=== PATIENT | male | born 1950 | race Caucasian/White ===

== ENCOUNTER → 2016-12-14 | Outpatient (CLI) | payer OTHER ==
[~2016-12-14] MED LIST: ABACTAB11 PO; ASPEC325 PO; DOLU1TAB PO; FAMO20TA11 PO; FLX10 PO; KETO10TA PO; METH5TAB4 PO; MIRT30TA2 PO; MISCCAP80 PO; MULT-506 PO; NOTE:; OXYC-57 PO; TIMO0.5S2 OPB; TMPOPS15 OP; TRVHP PO; ZOLP10TA6 PO
[2016-12-14 12:03] LABS: BASO % 0.5 %; BASO ABS # 0.03 K/uL (0-0.2); COMPLETE YES; EOS % 6.7 %; HEMATOCRIT 42.5 % (42-52); IG% 0.2 %; LYMPH ABS # 2.39 K/uL (1.2-3.4); MEAN CELL VOLUME 96.6 fL (80-100); MEAN CORPUSCULAR HEMOGLOBIN 33.2 pg (25-34); MEAN CORPUSCULAR HGB CONC 34.4 g/dl (32-36); MEAN PLATELET VOLUME 10.6 fL (7.4-10.4); MONO % 8.5 %; NEUT % 44.1 %; PLATELET COUNT 279 K/uL (130-400); WHITE BLOOD COUNT 5.98 K/uL (4.8-10.8)
[2016-12-14 13:25] LABS: ALT/SGPT 34 U/L (12-78); AST/SGOT 24 U/L (15-37); BLOOD UREA NITROGEN 20 mg/dl (7-18); BUN/CREATININE RATIO 14.3 (10-20); CALCIUM 8.4 mg/dl (8.5-10.1); CARBON DIOXIDE 26 mmol/L (21-32); CHLORIDE 108 mmol/L (98-107); CHOLESTEROL 182 mg/dl (0-200); GLUCOSE 97 mg/dl (70-99); POTASSIUM 4.2 mmol/L (3.5-5.1); SODIUM 141 mmol/L (136-145)
[2016-12-14 13:27] LABS: ALKALINE PHOSPHATASE 74 U/L (45-117); CHOLESTEROL/HDL RATIO 4.9; HDL CHOLESTEROL 37 mg/dl; LDL CHOLESTEROL CALCULATED 99 mg/dl; TRIGLYCERIDES 232 mg/dl (0-150); VERY LOW DENSITY LIPOPROT CALC 46 mg/dl
[2016-12-17 22:29] LABS: LSP % CELLS ANALYZED CD4 47 % (30-61); LSP ABSOLUTE CT CD4 1106 cells/uL (490-1740); LSP LYMPHOCYTES ABSOLUTE 2329 cells/uL (850-3900)
== END | disposition home or self-care (01) ==
LOC: C.LAB1850 10:56
PROVIDERS: ATTEND Internal Medicine Infectious Disease
DX: Z00.00 Encounter for general adult medical examination without abnormal findings (principal); B34.9 Viral infection, unspecified; B20 Human immunodeficiency virus [HIV] disease; Z13.220 Encounter for screening for lipoid disorders

== ENCOUNTER → 2016-12-28 | Day surgery (SDC) | payer OTHER ==
[2016-12-16 08:52] VITALS: Ht 180.3 cm; Wt 93.2 kg
[~2016-12-28] VITALS: Ht 180.3 cm; Wt 93.2 kg
[~2016-12-28] MED LIST changes: -ABACTAB11 PO; -FLX10 PO; +LIDOCAINE HCL 2% 2 ML VIAL (20MG/ML) ONE; -METH5TAB4 PO; +MIDAZOLAM HCL 1 MG/ML 2ML VIAL ONE; -NOTE:; +PROPOFOL IV EMULSION 10 MG/ML 20 ML VIAL IV ONE; -TMPOPS15 OP
--- NOTE | 2016-12-28 12:28 | Endo History and Physical ---
History & Physical Date of Service: Dec 28, 2016. Chief Complaint: screening Referring Physician: Dr. English History of Present Illness 66 yo CM who presents for screening colonoscopy. Past Medical History Glaucoma, Reflux Past Surgical History Hx Cardiac Surgery: No Hx Internal Defibrillator: No Hx Pacemaker: No Hx Abdominal Surgery: Yes (INGUINAL HERNIA X 3, BLAIR) Hx of Implantable Prosthesis: No Hx Post-Op Nausea and Vomiting: No Hx Cancer Surgery: No Hx Thoracic Surgery: No Hx Orthopedic: No Hx Urinary Tract Surgery: No Family History None Social History Smoking Status: Former Smoker Hx Substance Use: No Hx Alcohol Use: Yes (RARELY) Allergies Coded Allergies: Penicillins (Verified Allergy, Unknown, A CHILD, INTERNAL BLEEDING, 08/05) TOLERATES AMOXICILLIN Current Medications Reported Home Medications Medications Dose Route/Sig Max Daily Dose Days Date Category Dose Instructions Probiotic (Probiotic Product) 1 Cap Cap 1 Cap PO QAM 12/16/16 Reported Multivitamin (Multivitamins) Tab 1 Tab PO DAILY 12/16/16 Reported WHEN REMEMBERS Timoptic-Xe 0.5% Oph (Timolol Maleate (Ophth)) 0.5 % Danae 1 Drops OPB DAILY 12/16/16 Reported Zolpidem Tartrate 10 Mg Tab 1 Tab PO HS 30 12/16/16 Reported Truvada 200/300MG (Emtricitabine/Tenofovir) Tab 1 Tab PO HS 12/16/16 Reported Tivicay (Dolutegravir Sodium) 50 Mg Tab 1 Tab PO HS 12/16/16 Reported Remeron Soltab (Mirtazapine) 30 Mg Soltab 30 Mg PO HS 12/16/16 Reported Pepcid (Famotidine) 20 Mg Tab 20 Mg PO HS 12/16/16 Reported Vital Signs Weight (Kilograms): 93.18 Height (Feet): 5 Height (Inches): 11 Date Time Temp Pulse Resp B/P Pulse Ox O2 Delivery O2 Flow Rate FiO2 12/28/16 11:01 36.5 91 20 131/76 96 Room Air Physical Exam General Appearance: WD/WN, no apparent distress Respiratory/Chest: Auscultation: breath sounds normal Cardiovascular: Heart Auscultation: RRR Abdomen: Bowel Sounds: normal Inspection & Palpation: soft, non-distended, no tenderness, guarding & rebound Assessment and Plan Assessment: 66 yo CM who presents for screening colonoscopy. Plan: Proceed with colonoscopy.
--- NOTE | 2016-12-28 13:14 | GI REPORT ---
Procedure Date: 12/28/2016 12:30 PM Procedure: Colonoscopy Indications: Screening for colorectal malignant neoplasm Medicines: Monitored Anesthesia Care Complications: No immediate complications. Estimated Blood Loss: Estimated blood loss: none. Procedure: Pre-Anesthesia Assessment: - Prior to the procedure, a History and Physical was performed, and patient medications and allergies were reviewed. The patient's tolerance of previous anesthesia was also reviewed. The risks and benefits of the procedure and the sedation options and risks were discussed with the patient. All questions were answered, and informed consent was obtained. Prior Anticoagulants: The patient has taken no previous anticoagulant or antiplatelet agents. ASA Grade Assessment: II - A patient with mild systemic disease. After reviewing the risks and benefits, the patient was deemed in satisfactory condition to undergo the procedure. After I obtained informed consent, the scope was passed under direct vision. Throughout the procedure, the patient's blood pressure, pulse, and oxygen saturations were monitored continuously. The scope was introduced through the anus and advanced to the cecum, identified by appendiceal orifice and ileocecal valve. The colonoscopy was performed without difficulty. The patient tolerated the procedure well. The quality of the bowel preparation was good. The terminal ileum, ileocecal valve, appendiceal orifice, and rectum were photographed. Findings: Three sessile polyps were found in the transverse colon. The polyps were 5 to 8 mm in size. These polyps were removed with a hot snare. Resection and retrieval were complete. To prevent bleeding after the polypectomy, one hemostatic clip was successfully placed (MR conditional). There was no bleeding at the end of the procedure. Multiple small-mouthed diverticula were found in the sigmoid colon. Non-bleeding internal hemorrhoids were found during retroflexion. The hemorrhoids were small. Impression: - Three 5 to 8 mm polyps in the transverse colon, removed with a hot snare. Resected and retrieved. Clip (MR conditional) was placed. - Diverticulosis in the sigmoid colon. - Non-bleeding internal hemorrhoids. Recommendation: - Resume previous diet. - Continue present medications. - Repeat colonoscopy for surveillance based on pathology results. - Return to primary care physician as previously scheduled. Vidal Benson DO 12/28/2016 1:13:32 PM This report has been signed electronically. Note Initiated On: 12/28/2016 12:30 PM I attest to the content of the Intraoperative Record and orders documented therein, exceptions below
--- NOTE | 2016-12-28 13:15 | Discharge Instructions ---
Endoscopy Patient Instructions Date / Procedure(s) Performed Dec 28, 2016. Colonoscopy Allergy Information Coded Allergies: Penicillins (Verified Allergy, Unknown, A CHILD, INTERNAL BLEEDING, 08/05) TOLERATES AMOXICILLIN Discharge Date / Findings Dec 28, 2016. Colon polyps Diverticulosis Internal hemorrhoids Medication Instructions Stopped Medication(s): All meds stopped 12/27/2016. OK to resume all medications today as prescribed. Reported Home Medications Medications Dose Route/Sig Max Daily Dose Days Date Category Dose Instructions Probiotic (Probiotic Product) 1 Cap Cap 1 Cap PO QAM 12/16/16 Reported Multivitamin (Multivitamins) Tab 1 Tab PO DAILY 12/16/16 Reported WHEN REMEMBERS Timoptic-Xe 0.5% Oph (Timolol Maleate (Ophth)) 0.5 % Danae 1 Drops OPB DAILY 12/16/16 Reported Zolpidem Tartrate 10 Mg Tab 1 Tab PO HS 30 12/16/16 Reported Truvada 200/300MG (Emtricitabine/Tenofovir) Tab 1 Tab PO HS 12/16/16 Reported Tivicay (Dolutegravir Sodium) 50 Mg Tab 1 Tab PO HS 12/16/16 Reported Remeron Soltab (Mirtazapine) 30 Mg Soltab 30 Mg PO HS 12/16/16 Reported Pepcid (Famotidine) 20 Mg Tab 20 Mg PO HS 12/16/16 Reported Provider Instructions Activity Restrictions - No exercising or heavy lifting for 24 hours. - Do not drink alcohol the day of the procedure. - Do not drive a car or operate machinery until the day after the procedure. - Do not make any important decisions or sign important papers in 24 hours after the procedure. Following Day: - Return to full activity which may include returning to work/school. Diet Start your diet with liquids and light foods (jello, soup, juice, toast). Then eat your usual diet if not nauseated. Treatment For Common After Affects For mild abdominal pain, bloating, or excessive gas: - Rest - Eat lightly - Lie on right side Follow-Up Information Follow-up with Dr. English as scheduled Anesthesia Information What You Should Know You have had a procedure that required some medicine to reduce anxiety and discomfort. This treatment is called moderate sedation. After receiving the treatment, you may be sleepy, but you will be able to breathe on your own. The effects of the treatment may last for several hours. Follow these instructions along with Activity/Diet recommendations noted above: * Do NOT do anything where dizziness or clumsiness would be dangerous. * Rest quietly at home today, then you can be up and about tomorrow. * Have a responsible person stay with you the rest of today. * You may have had an I.V. today. If so, you may take the dressing off later today. Recommendations Call your doctor if: * Trouble breathing * Continuous vomiting for more than 24 hours * Temperature above 101 degrees * Severe abdominal pain or bloating * Pain not relieved by pain medicine ordered * There is increased drainage or redness from any incision * A large amount of rectal bleeding greater than 2-3 tablespoons. (If you had a polyp/s removed or have hemorrhoids, a small amount of blood - from the rectum is to be expected.) * You have any unanswered questions or concerns. IN THE EVENT OF A SERIOUS EMERGENCY, GO TO THE NEAREST EMERGENCY ROOM Your discharge instructions were prepared by provider Vidal Benson. Patient Instructions Signature Page Nikhil Moreno Patient (or Guardian) Signature/Date: I have read and understand the instructions given to me by my caregivers. Caregiver/RN/Doctor Signature/Date: The above-named patient and/or guardian has received patient instructions on this date. + Original Patient Signature Page (only) stays with chart. Please make copy for patient.
--- NOTE | 2016-12-28 13:20 | Anesthesiology Progress Note ---
Anesthesia Post Op Note Date & Time Dec 28, 2016 at 13:19 Vital Signs Pain Intensity: 0 Vital Signs Past 12 Hours Date Time Temp Pulse Resp B/P Pulse Ox O2 Delivery O2 Flow Rate FiO2 12/28/16 13:15 85 20 111/81 97 Room Air 12/28/16 13:00 85 20 122/76 96 Room Air 12/28/16 11:01 36.5 91 20 131/76 96 Room Air Notes Mental Status: alert / awake / arousable, participated in evaluation Pt Amnestic to Procedure: Yes Nausea / Vomiting: adequately controlled Pain: adequately controlled Airway Patency, RR, SpO2: stable & adequate BP & HR: stable & adequate Hydration State: stable & adequate Anesthetic Complications: no major complications apparent
[2016-12-28 13:30] VITALS: BP 139/108; PULSE 81; O2SAT 98
== END | disposition home or self-care (01) ==
LOC: C.GI 10:10
PROVIDERS: ATTEND Internal Medicine
DX: Z12.11 Encounter for screening for malignant neoplasm of colon (principal); D12.3 Benign neoplasm of transverse colon; K57.30 Diverticulosis of large intestine without perforation or abscess without bleeding; K64.8 Other hemorrhoids; K21.9 Gastro-esophageal reflux disease without esophagitis; Z98.890 Other specified postprocedural states; Z87.891 Personal history of nicotine dependence; Z88.0 Allergy status to penicillin

== ENCOUNTER → 2017-02-01 | Outpatient (CLI) | payer OTHER ==
[~2017-02-01] MED LIST changes: -LIDOCAINE HCL 2% 2 ML VIAL (20MG/ML) ONE; -MIDAZOLAM HCL 1 MG/ML 2ML VIAL ONE; -PROPOFOL IV EMULSION 10 MG/ML 20 ML VIAL IV ONE
[2017-02-01 13:08] LABS: BENZODIAZEPINE, URINE NEG (NEG); COCAINE,URINE NEG (NEG); PHENCYCLIDINE, URINE NEG (NEG)
== END | disposition home or self-care (01) ==
LOC: C.LAB1850 10:15
PROVIDERS: ATTEND Family Medicine
DX: F90.0 Attention-deficit hyperactivity disorder, predominantly inattentive type (principal); Z79.899 Other long term (current) drug therapy

== ENCOUNTER → 2017-02-28 | Outpatient (CLI) | payer OTHER ==
[2017-02-28 14:56] LABS: BASO % 0.5 %; BASO ABS # 0.03 K/uL (0-0.2); COMPLETE YES; EOS % 5.5 %; HEMATOCRIT 41.3 % (42-52); IG% 0.2 %; LYMPH ABS # 2.05 K/uL (1.2-3.4); MEAN CELL VOLUME 96.7 fL (80-100); MEAN CORPUSCULAR HEMOGLOBIN 31.6 pg (25-34); MEAN CORPUSCULAR HGB CONC 32.7 g/dl (32-36); MEAN PLATELET VOLUME 10.3 fL (7.4-10.4); MONO % 8.4 %; NEUT % 50.4 %; PLATELET COUNT 311 K/uL (130-400); RED BLOOD COUNT 4.27 M/uL (4.7-6.1); WHITE BLOOD COUNT 5.85 K/uL (4.8-10.8)
[2017-02-28 15:29] LABS: POTASSIUM 4.1 mmol/L (3.5-5.1)
== END | disposition home or self-care (01) ==
LOC: C.CPL 13:52
PROVIDERS: ATTEND Orthopaedic Surgery Sports Medicine
DX: Z01.810 Encounter for preprocedural cardiovascular examination (principal)

== ENCOUNTER → 2017-03-02 | Day surgery (SDC) | payer OTHER ==
[2017-02-28 15:14] VITALS: Ht 180.3 cm; Wt 90.5 kg
[~2017-03-02] VITALS: Ht 180.3 cm; Wt 90.5 kg
[~2017-03-02] MED LIST changes: +ATROPINE SULFATE 0.1 MG/ML 5ML SYR IV PRN; +BUPIVACAINE/EPINEPHRINE 0.5% MPF 1:200,000 30 ML VIAL ONE; +CEFAZOLIN SOD 1 GM VIAL ONE; +CEFAZOLIN SOD 1000MG/55 ML D5W IV ONE; +DEXAMETHASONE SOD INJ 4 MG/ML VIAL ONE; +ESMOLOL HCL 10 MG/ML 10 ML VIAL ONE; +FENTANYL CITRATE INJ 50 MCG/1 ML 2 ML VIAL IV PRN; +FENTANYL CITRATE INJ 50 MCG/1 ML 2 ML VIAL ONE; +KETOROLAC TROMETHAMINE 30 MG/ML VIAL IV. PRN; +LABETALOL HCL IV 5 MG/ML 20ML IV PRN; +LIDOCAINE HCL 2% 2 ML VIAL (20MG/ML) ONE; +MIDAZOLAM HCL 1 MG/ML 2ML VIAL ONE; +ONDANSETRON INJ 2 MG/ML 2 ML VIAL IV PRN; +ONDANSETRON INJ 2 MG/ML 2 ML VIAL ONE; +OXYCODONE/ACETAMINOPHEN 5-325 TAB PO PRN; +PROPOFOL IV EMULSION 10 MG/ML 20 ML VIAL IV ONE; +ROPIVACAINE 0.5% 5 MG/ML 30 ML VIAL ONE; +SODIUM CHLORIDE 0.9% 1000ML 1,000 ML IV SCH
--- NOTE | 2017-03-02 07:53 | History & Physical Bridge - SC ---
H&P Re-Evaluation Bridge Note: I have examined the patient, reviewed the History & Physical and in the interval since the performance of the History & Physical I have noted the following changes of clinical significance: No changes noted
[2017-03-02] MEDS: LACTATED RINGER'S 1000ML 1,000 ML IV SCH ×2 (08:08→12:08)
[2017-03-02] MEDS: CEFAZOLIN 2000 MG/60 ML D5W IV SCH ×2 (09:07→09:30)
--- NOTE | 2017-03-02 11:33 | [facility] Post Operative Brief Note ---
Immediate Operative Summary Operative Date Mar 02, 2017. Pre-Operative Diagnosis Left Bimalleolar Ankle Fracture Post-Operative Diagnosis same as preop Procedure(s) Performed ORIF Left Bimalleolar Ankle Fracture Surgeon Dr. Huddleston Customer Professional Surgeon(s) Neville Zavala PA-C Estimated Blood Loss 30ML Findings Comminuted Bimalleolar ankle fracture Specimens none, per surgeon Anesthesia General Complication(s) None Disposition Recovery Room / PACU
--- NOTE | 2017-03-02 11:37 | Discharge Instructions-SurgCtr ---
Discharge Instructions Date of Service Mar 02, 2017. Visit Reason for Visit: Fracture Of Tibia And Fibula Discharge Discharge Diagnosis / Problem: left distal tibia and fibula fx Discharge Goals Goal(s): Improve function, Therapeutic intervention Activity Recommendations Activity Limitations: per Instructions/Follow-up section Weightbearing Status: Left non-weightbearing Anesthesia . Post Anesthesia Instructions: If you have had General Anesthesia or IV Sedation: * Do not drive today. * Resume driving when surgeon permits. * Do not make important decisions or sign legal documents today. * Call surgeon for: 1. Temperature elevations greater than 101 degrees F. 2. Uncontrollable pain. 3. Excessive bleeding. 4. Persistent nausea and vomiting. 5. Medication intolerance (nausea, vomiting or rash). * For nausea and vomiting use only clear liquids such as: tea, soda, bouillon until nausea subsides, then gradually increase diet as tolerated. * If you have any concerns or questions, call your surgeon's office. If physician is unavailable and it is an emergency, call 911 or go to the nearest emergency room. . Instructions / Follow-Up Instructions / Follow-Up MEDICATIONS: * Resume previous medications unless instructed otherwise by your surgeon. * Always take pain medication on a full stomach or with food to avoid upset stomach. * Do not drink alcohol or drive while taking narcotics. * Ibuprofen or Tylenol may be taken if narcotic not needed. No ibuprofen while taking toradol SPECIAL CARE INSTRUCTIONS: __ None _x_ Keep extremity elevated and iced x 48 hours; apply ice 20-30 minutes 8-10 times/day. May remove at night. _x_ Crutches __ May discard when able __ Brace/Post-op shoe __ 24 hrs/day __ Remove at night _x_ Dressing x__ Maintain until seen in office, may shower with plastic over site __ Remove dressings in 24-48 hours and then may shower __ Cover incisions with band-aids after showering __ Do not remove steri-strips Call physician if chills or temperature rises above 102 degrees or pain unrelieved by prescribed pain medications. Office [phone] follow up in 2 weeks Diet Recommendations Home Diet: resume previous diet Procedures Procedures Performed: ORIF Left Bimalleolar Ankle Fracture Pending Studies Studies pending at discharge: no Medical Emergencies . Who to Call and When: Medical Emergencies: If at any time you feel your situation is an emergency, please call 911 immediately. . Non-Emergent Contact Non-Emergency issues call your: Surgeon . . "Provider Documentation" section prepared by Luis Zavala. .
--- NOTE | 2017-03-02 13:03 | OPERATIVE REPORT ---
DATE OF OPERATION: 03/02/2017 PREOPERATIVE DIAGNOSIS: Left comminuted bimalleolar ankle fracture dislocation. POSTOPERATIVE DIAGNOSIS: Same. PROCEDURE PERFORMED: Open reduction and internal fixation of left comminuted bimalleolar ankle fracture. SURGEON: Chandan Huddleston M.D. DEMAND INSPECTOR: Luis Zavala PA-C. COMPLICATIONS: None. ESTIMATED BLOOD LOSS: 30 mL. TOURNIQUET TIME: 62 minutes at 300 mmHg. ANESTHESIA: General. SPECIMENS: None. OPERATIVE INDICATIONS: The patient is a 66-year-old gentleman who sustained an injury over the weekend. He was out of town when he stepped in some type of crack and sustained a severe injury to his ankle. He was seen locally in [place] and underwent a closed reduction, was splinted and referred to our clinic for definitive treatment. The patient had moderate swelling and a pretty large medial fracture blister. His leg was immobilized and elevated to allow swelling to resolve and the patient is now indicated for surgical fixation. OPERATIVE FINDINGS: Operative findings revealed a comminuted fibula fracture. The medial malleolus fracture was a large fragment. The swelling had decreased some but still markedly swollen. Fracture blister had ruptured. OPERATIVE IMPLANTS: Medial side implants consisted of Synthes 4.0 partially threaded long threaded screws x2 with washers. LATERAL SIDE IMPLANTS: Lateral side implants consisted of: 1. A Synthes 12-hole 1/3 semitubular stainless steel small fragment locking plate. 2. A 3.5 fully threaded cortical screws x6. 3. A 4.0 fully threaded cancellous screws x2. 4. A 3.5 fully threaded locking screws x2. OPERATIVE PROCEDURE: The patient taken to the operating room, identified and placed on the operating table in supine position. All contact areas were appropriately padded. IV antibiotics provided by anesthesia team. A general anesthetic was implemented. A left thigh tourniquet was then placed. The splint was then removed from the left foot and ankle. I then scrubbed the foot with Hibiclens. We then prepped it with ChloraPrep and draped the lower extremity in a typical sterile fashion. The left leg was elevated but not exsanguinated. The tourniquet was placed at 300 mmHg. Attention was first drawn to the medial side. A curvilinear incision was made over the medial malleolus. We did make this anterior to the fracture blister and avoided entering through the black fracture blister at all. Sharp dissection was carried out through the subcutaneous tissue down to the bone. The fracture site was easily visualized. There was quite a bit of periosteum in the fracture itself. We distracted fragment pieces and removed all soft tissues from the interfaces and between the fracture edges. I then irrigated the wound along with the ankle joint extensively. I then reduced the medial malleolus fracture and held it with a reduction clamp. I placed 2 K-wires across the fracture and verified this fluoroscopically. I then placed two 4.0 partially threaded, long threaded cannulated cancellous screws with washers across the fracture site through both of these K-wires. This provided excellent compression. The K-wires were removed. X-rays were obtained and the hardware was appropriately placed. The ankle stability was markedly restored. Attention was then drawn laterally. A direct lateral approach to the fibula was then performed through a longitudinal incision. Sharp dissection was carried through the subcutaneous tissue down to the level of fascia. I did incise the periosteum and stripped this from the fracture site. The fracture was quite comminuted. I pieced it together with some K-wires and then used a Synthes 12-hole 1/3 semitubular locking plate and fixed it proximally with a single fully threaded cortical screw. I then fixed it distally with two 4.0 fully threaded cancellous screws and then even further distally with two 3.5 locking screws. I placed these screws distally in order to sink the heads into the plate and make the hardware less prominent. I then proceeded to fix the plate to the bone proximally with additional 3.5 fully threaded cortical screws. One of these screws was placed across the comminuted segment to lag it together and enhanced stability. We did not take the entire fracture down, it was fairly comminuted. Some final x-rays were obtained. I did stress the ankle and there were no signs of needing syndesmosis screw or syndesmosis instability. Attention was then drawn toward closing. The wound was irrigated with copious amounts of normal saline. I injected locally with 30 mL of 0.5% Marcaine with epinephrine. The tourniquet was then let down for final tourniquet time 62 minutes. Hemostasis was assured with use of electrocautery. The deep tissue laterally was repaired with 2-0 Vicryl suture in a buried interrupted fashion. The subcutaneous tissues of both wounds were then closed with 3-0 Dexon suture in a buried interrupted fashion. Skin was closed with 3-0 nylon suture, both medially and laterally. A sterile dressing with Xeroform, 4 x 4, sterile cast padding and a well-padded posterior and stirrup splint were applied. The patient then brought out of general anesthesia and transferred to the recovery room in stable condition. The patient tolerated the procedure well with no complications. All needle and sponge counts were correct at the end of the operation. I attest to the content of the Intraoperative Record and any orders documented therein. Any exceptions are noted below. MTDD
[2017-03-02 13:34] VITALS: TEMP 36.7
--- NOTE | 2017-03-02 13:48 | Anesthesia Progress Nt - [facility] ---
Anesthesia Post Op Note Date & Time Mar 02, 2017 at 13:48 Vital Signs Pain Intensity: 0 Vital Signs Past 12 Hours Date Time Temp Pulse Resp B/P (MAP) Pulse Ox O2 Delivery O2 Flow Rate FiO2 03/02/17 13:34 36.7 90 16 105/64 (78) 97 Room Air 03/02/17 13:22 36.0 85 12 117/80 97 Room Air 03/02/17 13:21 91 8 117/80 95 03/02/17 13:21 88 8 03/02/17 13:16 86 9 126/80 97 03/02/17 13:16 86 9 03/02/17 13:11 84 8 03/02/17 13:11 88 8 129/80 96 03/02/17 13:06 86 10 130/76 97 03/02/17 13:06 85 10 03/02/17 13:01 84 6 139/93 97 03/02/17 13:01 83 6 03/02/17 12:56 85 7 126/77 94 03/02/17 12:56 85 7 03/02/17 12:51 90 9 132/84 97 03/02/17 12:51 88 9 03/02/17 12:46 87 7 03/02/17 12:46 87 7 133/85 93 03/02/17 12:41 97 13 124/73 98 03/02/17 12:41 97 13 03/02/17 12:36 91 2 03/02/17 12:36 92 2 121/80 94 03/02/17 12:31 89 0 03/02/17 12:31 89 0 134/81 98 03/02/17 12:30 Room Air 03/02/17 12:26 90 9 03/02/17 12:26 88 9 126/72 100 03/02/17 12:21 88 1 122/71 100 03/02/17 12:21 89 1 03/02/17 12:16 90 4 03/02/17 12:16 90 4 127/70 100 03/02/17 12:11 95 7 03/02/17 12:11 95 7 122/77 03/02/17 12:06 93 10 03/02/17 12:06 94 10 133/80 100 03/02/17 12:01 93 9 128/77 100 03/02/17 12:01 93 9 6/14/17 11:56 95 10 14/17 11:56 95 10 125/73 100 14/17 11:51 96 12 14/17 11:51 96 12 136/75 100 14/17 11:46 95 7 14/17 11:46 95 7 126/72 100 14/17 11:41 96 9 119/64 100 14/17 11:41 96 9 14/17 11:36 96 14 110/62 100 14/17 11:36 97 14 14/17 11:33 105/64 14/17 11:32 36.6 99 16 105/64 97 Diffusion Mask 6 14/17 09:31 0 14/17 09:30 19 14/17 09:26 118/75 14/17 09:25 83 7 100 14/17 09:25 82 14/17 09:24 81 6 100 1417 09:24 81 1417 09:21 114/79 1417 09:19 85 12 100 14/17 09:19 84 14/17 09:18 83 14/17 09:18 82 13 100 1417 09:16 130/79 1417 09:13 82 14 100 1417 09:13 82 14/17 09:12 81 11 100 1417 09:12 82 1417 09:11 131/79 1417 09:07 82 1417 09:07 82 21 99 17 09:06 125/79 1417 09:02 84 1417 09:02 83 12 100 1417 09:01 124/85 14/17 08:59 89 14/17 08:59 90 29 98 14/17 08:56 126/81 14/17 08:54 79 14/17 08:54 79 13 100 14/17 08:53 84 14/17 08:53 86 4 136/81 99 1417 08:48 78 14/17 08:48 77 0 98 14/17 08:47 78 0 97 6/14/17 08:47 78 03/02/17 08:42 76 03/02/17 08:42 77 0 99 03/02/17 08:37 77 0 97 03/02/17 08:37 78 03/02/17 07:47 36.6 85 16 129/78 (95) 96 Room Air Notes Mental Status: alert / awake / arousable, participated in evaluation Pt Amnestic to Procedure: Yes Nausea / Vomiting: adequately controlled Pain: adequately controlled Airway Patency, RR, SpO2: stable & adequate BP & HR: stable & adequate Hydration State: stable & adequate Anesthetic Complications: no major complications apparent
[2017-03-02 14:06] VITALS: BP 139/87; PULSE 90; O2SAT 97
--- NOTE | 2017-03-02 14:58 | DIAGNOSTIC IMAGING REPORT ---
INTRAOPERATIVE FLUOROSCOPIC IMAGES OF THE LEFT ANKLE CLINICAL HISTORY: ORIF LEFT ANKLE COMPARISON STUDY: None. FLUOROSCOPY TIME: 38 seconds. FINDINGS: 4 fluoroscopic images demonstrate a distal left fibular plate and screws which fixate a oblique distal diaphyseal fibular fracture. Fracture alignment is near anatomic. There are 2 medial malleolar screws. There is no ankle mortise widening. There are no unexpected radiopaque foreign bodies. IMPRESSION: Expected findings following distal left tibial and fibular internal fixation. Electronically signed by: Mathieu Temple M.D. 03/02/2017 2:57 PM Dictated Date/Time: 03/02/2017 2:56 PM
== END | disposition home or self-care (01) ==
LOC: X.SURG 07:31
PROVIDERS: ATTEND Orthopaedic Surgery Sports Medicine
DX: S82.842A Displaced bimalleolar fracture of left lower leg, initial encounter for closed fracture (principal); W19.XXXA Unspecified fall, initial encounter

== ENCOUNTER → 2017-12-13 | Outpatient (CLI) | payer OTHER ==
[~2017-12-13] MED LIST changes: -ATROPINE SULFATE 0.1 MG/ML 5ML SYR IV PRN; -BUPIVACAINE/EPINEPHRINE 0.5% MPF 1:200,000 30 ML VIAL ONE; -CEFAZOLIN SOD 1 GM VIAL ONE; -CEFAZOLIN SOD 1000MG/55 ML D5W IV ONE; -DEXAMETHASONE SOD INJ 4 MG/ML VIAL ONE; -ESMOLOL HCL 10 MG/ML 10 ML VIAL ONE; -FENTANYL CITRATE INJ 50 MCG/1 ML 2 ML VIAL IV PRN; -FENTANYL CITRATE INJ 50 MCG/1 ML 2 ML VIAL ONE; -KETO10TA PO; -KETOROLAC TROMETHAMINE 30 MG/ML VIAL IV. PRN; -LABETALOL HCL IV 5 MG/ML 20ML IV PRN; -LIDOCAINE HCL 2% 2 ML VIAL (20MG/ML) ONE; -MIDAZOLAM HCL 1 MG/ML 2ML VIAL ONE; -ONDANSETRON INJ 2 MG/ML 2 ML VIAL IV PRN; -ONDANSETRON INJ 2 MG/ML 2 ML VIAL ONE; -OXYC-57 PO; -OXYCODONE/ACETAMINOPHEN 5-325 TAB PO PRN; -PROPOFOL IV EMULSION 10 MG/ML 20 ML VIAL IV ONE; -ROPIVACAINE 0.5% 5 MG/ML 30 ML VIAL ONE; -SODIUM CHLORIDE 0.9% 1000ML 1,000 ML IV SCH
[2017-12-13 12:22] LABS: BASO % 0.8 %; BASO ABS # 0.05 K/uL (0-0.2); EOS % 7.3 %; EOS ABS # 0.45 K/uL (0-0.5); HEMATOCRIT 45.3 % (42-52); HEMOGLOBIN 15.4 g/dL (14.0-18.0); IG# 0.01 K/uL (0.00-0.02); LYMPH % 36.6 %; LYMPH ABS # 2.25 K/uL (1.2-3.4); MEAN CELL VOLUME 96.8 fL (80-100); MEAN CORPUSCULAR HEMOGLOBIN 32.9 pg (25-34); MONO % 8.1 %; NEUT ABS # 2.88 K/uL (1.4-6.5); PLATELET COUNT 290 K/uL (130-400); RED CELL DISTRIBUTION WIDTH CV 14.1 % (11.5-14.5); WHITE BLOOD COUNT 6.14 K/uL (4.8-10.8)
[2017-12-13 13:02] LABS: ALBUMIN 4.4 gm/dl (3.4-5.0); ALT/SGPT 28 U/L (12-78); AST/SGOT 22 U/L (15-37); BLOOD UREA NITROGEN 21 mg/dl (7-18); CALCIUM 9.1 mg/dl (8.5-10.1); CARBON DIOXIDE 24 mmol/L (21-32); CREATININE 1.32 mg/dl (0.60-1.40); GLUCOSE 97 mg/dl (70-99); POTASSIUM 4.1 mmol/L (3.5-5.1); SODIUM 137 mmol/L (136-145)
[2017-12-13 13:04] LABS: ALKALINE PHOSPHATASE 75 U/L (45-117); CHOLESTEROL 178 mg/dl (0-200); LDL CHOLESTEROL CALCULATED 108 mg/dl; TOTAL PROTEIN 8.1 gm/dl (6.4-8.2)
[2017-12-16 16:29] LABS: LSP % CELLS ANALYZED CD4 47 % (30-61); LSP ABSOLUTE CT CD4 1070 cells/uL (490-1740)
== END | disposition home or self-care (01) ==
LOC: C.LAB1850 10:49
PROVIDERS: ATTEND Internal Medicine Infectious Disease
DX: B20 Human immunodeficiency virus [HIV] disease (principal)

== ENCOUNTER 2023-03-11 22:25 | Inpatient (IN) ==
[2023-03-11] MEDS ORDERED: CEFEPIME 2,000 MG/20 ML VIAL IV STA (22:42)
[2023-03-11] MEDS ORDERED: SODIUM CHLORIDE 0.9% 1000ML 1,000 ML IV SCH (22:45)
[2023-03-11] MEDS ORDERED: SODIUM CHLORIDE 0.9% 1000ML 500 ML IV SCH (22:45)
[2023-03-11] MEDS: SODIUM CHLORIDE 0.9% 1000ML 1,000 ML IV SCH (23:27)
[2023-03-11 23:41] LABS: Base Excess VBG 2.7 mEq/L; HCO3 VBG 26 mmol/L; Oxygen Saturation VBG 77.6 %; PCO2 VBG 36 mmHg (38-50); PO2 VBG 44 mmHg; pH VBG 7.47 (7.36-7.41)
[2023-03-12] MEDS ORDERED: OPTIRAY 320 125ml IV ONE (00:03)
--- NOTE | 2023-03-12 00:13 | CT Scan Report ---
Exam(s): CTA CHEST IV Amt: 119ML OF OPTIRAY 320 EXAM: CT Angiography Chest With Intravenous Contrast CLINICAL HISTORY: Reason for exam: PE. TECHNIQUE: Axial computed tomographic angiography images of the chest with intravenous contrast. CTDI is 33.24 mGy and DLP is 717.99 mGy-cm. Automated exposure control was utilized for the study. A dose lowering technique was utilized adhering to the principles of ALARA. MIP reconstructed images were created and reviewed. COMPARISON: CT chest 01/04/23 FINDINGS: Pulmonary arteries: Adequate pulmonary artery opacification. Normal caliber main pulmonary artery. No pulmonary embolism. Aorta: No acute findings. No thoracic aortic aneurysm or dissection. Lungs: Stable 6 mm pulmonary micronodule right lower lobe (series 6, image 67). Centrilobular emphysema. No consolidation or mass. Pleural space: Unremarkable. No pleural effusion or pneumothorax. Heart: Unremarkable. Normal heart size. Mild atherosclerosis of the left anterior descending coronary artery. No RV strain. No pericardial effusion. Bones/joints: No acute fracture or dislocation. Soft tissues: Unremarkable. Lymph nodes: Unremarkable. No adenopathy. Gallbladder and bile ducts: Cholecystectomy. IMPRESSION: 1. No evidence of acute pulmonary embolism. 2. Stable 6 mm pulmonary micronodule right lower lobe. Patient is undergoing annual lung screening. 3. Centrilobular emphysema. Electronically signed by: Norm Juárez M.D. 03/12/23 00:12 AM
[2023-03-12 00:24] LABS: Albumin Level 3.8 gm/dl (3.4-5.0); BUN Creatinine Ratio 21.2 (10-20); Bilirubin Direct 0.2 mg/dl (0-0.2); Bilirubin,Total 0.7 mg/dl (0.2-1.0); Calcium 9.4 mg/dl (8.6-10.3); Creatinine Clr Calc Pharmacy 47.1 ml/min; Est GFR (African American) 52.7 ml/min; Est GFR (Non-African American) 45.5 ml/min; Magnesium 2.1 mg/dl (1.7-2.4); Potassium 3.9 mmol/L (3.5-5.1); Total Protein 7.5 gm/dl (6.0-8.3)
[2023-03-12] MEDS: SODIUM CHLORIDE 0.9% 1000ML 1,000 ML IV SCH (00:24)
[2023-03-12 00:25] LABS: Hematocrit (blood only) 43.4 % (42.0-52.0); Hemoglobin 15.4 g/dl (14.0-18.0); Mean Corpuscular Hemoglobin 32.2 pg (25.0-34.0); Mean Corpuscular Hgb Conc 35.5 g/dL (32.0-36.0); Mean Corpuscular Volume 90.8 fL (80.0-100.0); Mean Platelet Volume 11.9 fL (9.4-12.4); Platelet Count 71 K/uL (130-400); RDW Coefficient of Variation 13.7 % (11.5-14.5); RDW Standard Deviation 46.4 fL (36.4-46.3); Red Blood Count 4.78 M/uL (4.70-6.10); White Blood Count 5.39 K/ul (4.8-10.8)
[2023-03-12 00:27] LABS: Basophils # (auto) 0.02 K/uL (0-0.2); Basophils % (auto) 0.4 %; Immature Granulocytes # (auto) 0.02 K/uL (0.01-0.20); Immature Granulocytes % (auto) 0.4 %; Lymphocytes # (auto) 1.24 K/uL (1.2-3.4); Monocytes # (auto) 0.22 K/uL (0.11-0.59); Monocytes % (auto) 4.1 %; Neutrophils # (auto) 3.89 K/uL (1.40-6.50); Neutrophils % (auto) 72.1 %; Platelet Estimate Decreased (Normal); RBC Morphology Unremarkable
[2023-03-12 00:31] LABS: Troponin I High Sensitivity 14.5 pg/ml (0-20)
[2023-03-12 00:52] LABS: Partial Thromboplastin Ratio 1.1; Partial Thromboplastin Time 31.7 Seconds (21.0-31.0); Prothrombin Time 11.3 Seconds (9.0-12.0)
[2023-03-12] MEDS ORDERED: ONDANSETRON INJ 2 MG/ML 2 ML VIAL ONE (01:05)
[2023-03-12 01:20] LABS: Lyme Ab IgG w/WB Rflx Negative (Negative)
[2023-03-12 01:23] LABS: Adenovirus PCR Not Detected (NotDetected); Bordetella parapertussis PCR Not Detected (NotDetected); Bordetella pertussis PCR Not Detected (NotDetected); Chlamydia pneumoniae PCR Not Detected (NotDetected); Coronavirus 229E PCR Not Detected (NotDetected); Coronavirus CoV-2 (COVID19)PCR Not Detected (NotDetected); Coronavirus HKU1 PCR Not Detected (NotDetected); Coronavirus NL63 PCR Not Detected (NotDetected); Coronavirus OC43PCR Not Detected (NotDetected); Human Metapneumovirus PCR Not Detected (NotDetected); Influenza A PCR Not Detected (NotDetected); Influenza B PCR Not Detected (NotDetected); Mycoplasma pneumoniae PCR Not Detected (NotDetected); Parainfluenza Virus 1 PCR Not Detected (NotDetected); Parainfluenza Virus 2 PCR Not Detected (NotDetected); Parainfluenza Virus 3 PCR Not Detected (NotDetected); Parainfluenza Virus 4 PCR Not Detected (NotDetected); Respiratory Syncytial VirusPCR Not Detected (NotDetected); Rhinovirus/Enterovirus PCR Not Detected (NotDetected)
[2023-03-12] MEDS ORDERED: ONDANSETRON INJ 2 MG/ML 2 ML VIAL IV STA (01:31)
[2023-03-12 01:51] LABS: CSF Chemistry Tube # 1
[2023-03-12] MEDS ORDERED: DOXYCYCLINE HYCLATE 100 MG in DEXTROSE 5% 100 ML IV STA (01:52)
[2023-03-12 01:57] LABS: Appearance CSF Clear; Color CSF Colorless
[2023-03-12 01:58] LABS: CSF Count Tube # 3; CSF Xanthrochromic No xanthochromia
[2023-03-12 02:01] LABS: Lyme Ab IgM w/WB Rflx Equivocal (Negative)
[2023-03-12 02:04] LABS: CSF Glucose 70 mg/dl (40-70)
[2023-03-12] MEDS ORDERED: cefTRIAXone SODIUM 1,000 MG in DEXTROSE 5% AD-VAN 50 ML IV STA (02:10)
--- NOTE | 2023-03-12 02:53 | CT Scan Report ---
Exam(s): CT HEAD Without Contrast EXAM: CT Head Without Intravenous Contrast CLINICAL HISTORY: Reason for exam: altered ms. TECHNIQUE: Axial computed tomography images of the head/brain without intravenous contrast. CTDI is 37.01 mGy and DLP is 625.8 mGy-cm. Automated exposure control was utilized for the study. A dose lowering technique was utilized adhering to the principles of ALARA. COMPARISON: 04/23/14 FINDINGS: Brain: Cortical cerebral volume loss. Melendez-white matter differentiation maintained. No acute intracranial hemorrhage, mass- effect, or edema. Ventricles: Unremarkable. No hydrocephalus. Bones/joints: Unremarkable. No acute fracture. Soft tissues: Unremarkable. Sinuses: Unremarkable as visualized. No acute sinusitis. Mastoid air cells: Unremarkable as visualized. No mastoid effusion. IMPRESSION: No acute intracranial process. Electronically signed by: Norm Juárez M.D. 03/12/23 02:52 AM
--- NOTE | 2023-03-12 03:04 | History & Physical Report ---
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 -CTA chest: No evidence of acute pulmonary embolism. Stable 6 mm pulmonary micronodule right lower lobe. Patient is undergoing annual lung screening. Centrilobular emphysema. -will continue with IV doxycycline 100mg BID and ceftriaxone 2g IV daily, while doxycycline should have penetrance of the blood brain barrier ceftriaxone is more commonly used for [employer] infections. -babesia smear negative PCR pending -lyme disease equivocal labs pending -PRN zofran for nausea -trend cbc ADHD -continue methylphenidate AIDS -continue Biktarvy GERD -continue famotidine Insomnia -continue mirtazapine FENa: regular Code Status: Full DVT PPX: SCDs PT/OT: ordered Dispo: med/Emma Montiel D.O. 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 Patient states for the past week he has experienced lethargy loss of appetite periods of confusion and fever which has progressively worsened with time, began having a headache today with persistent nausea. Patient was seen in ED 03/08 CXR unremarkable at that time mild leukopenia normal platelet count, symptoms believed to be viral in nature at that time. Patient states his symptoms have worsened since. Blood work today revealed decreased platelet count, anaplasma smear positive lyme testing equivocal, given his headache a lumbar puncture was obtained in the ED which indicated anaplasmosis in the CSF. Findings discussed with patient. Allergies Allergy/AdvReac Type Severity Reaction Status Date / Time Penicillins Allergy Unknown A Verified 11/29/22 08:38 CHILD, INTERNAL BLEEDING Home Medications Medication Instructions Recorded Confirmed Type bictegravir 50 mg-emtricitabine 1 tab PO HS 01/04/22 03/12/23 History 200 mg-tenofovir alafenam 25 mg tablet (Biktarvy) mirtazapine 30 mg tablet 30 mg PO HS insomnia #90 tabs 12/03/22 03/12/23 Rx zolpidem 10 mg tablet 10 mg PO HS PRN insomnia #30 tabs 02/07/23 03/12/23 Rx methylphenidate HCl 5 mg tablet 5 mg PO BID #60 tabs 03/10/23 03/12/23 Rx famotidine 20 mg tablet 20 mg PO HS 03/12/23 03/12/23 History Past Med/Surg History Medical History ADHD Colon polyps Diverticulosis GERD without esophagitis HIV disease Insomnia Lung nodule just monitoring every 2 yrs Surgical History History of colonoscopy History of eye surgery S/P cholecystectomy S/P hernia repair S/P wisdom tooth extraction Status post tendon repair Family History Mother Myocardial infarction Other Cancer Hyperlipidemia Hypertension Denies family history of Ovarian cancer Prostate cancer Breast cancer Colorectal cancer Social History Smoking Status: Never smoker Tobacco Type: Cigarettes Age Started Using Tobacco: 22; Age Quit Using Tobacco: 61; Cigarettes Per Day: 20; Second Hand Exposure: No; Do You Dip or Chew Tobacco: No; Hx Alcohol Use: Yes Alcohol type: wine and hard liquor Alcohol Intake Frequency: 2-4 x/Month Hx Substance Use: No Preferred Language: [place] Communication Ability: Effective Visual Impairment: No Limitations Hearing Ability: Normal Disk Recordist Required: No Beliefs That Will Affect Care: None marital status: / Current Living Situation: Alone Current Living Situation Comment: home alone current occupational status: retired How many Children do You have: 1 Other Information That Helps Us Care for You: No Feels Safe at Home: Yes Safety Concerns: Feels Safe At This Time Childhood Exposure to Second-Hand Smoke: Yes Diet: regular Dental Care, Regularly: Yes Physical Activity Frequency: Daily Seatbelt Use: always Sunscreen Use: No Assistive Devices: Denture - Upper, Denture - Lower and Glasses Physical Exam Constitutional: + ill appearing and cooperative Eyes: PERRL, conjunctivae normal, anicteric sclerae ENMT: external ear and nose normal, oropharynx normal Neck: trachea midline, no thyromegaly Respiratory: Auscultation: lungs clear to auscultation bilaterally Cardiovascular: Rate/Rhythm: regular rhythm and + tachycardic Skin: no rashes, warm and dry Results & Data Results & Data Vital Signs (Past 12 Hours) Vital Signs Temp Pulse Pulse Resp BP BP Pulse Ox 03/12/23 00:13 121 H 30 H 147/75 H 97 03/11/23 23:32 93 03/11/23 23:30 28 H 124/98 93 03/11/23 22:46 129 H 03/11/23 22:27 37.5 C 138 H 18 118/71 90 O2 Del Method O2 Flow Rate 03/12/23 00:13 Oxymask 3 03/11/23 23:32 Nasal Cannula 3 03/11/23 23:30 Room Air 03/11/23 22:46 03/11/23 22:27 Room Air Supervising Physician Co-Signing Physician Notes Attending addendum: I have physically seen this patient, have supervised the medical residents activities, and agree with the H&P unless as otherwise noted. Assessment and Plan: [employer] anaplasmosis- Peripheral smear performed on cerebrospinal fluid consistent with cytoplasmic inclusions associated with anaplasmosis Patient will be placed on doxycycline 100 mg IV every 12 hours and ceftriaxone 2 g IV daily Lyme IgM is equivocal, with IgG pending, and will be sent for Western blot confirmation Anaplasmosis and babesiosis DNA testing pending Ehrlichiosis antibody testing pending HIV- Continue Biktarvy ADHD- Continue methylphenidate GERD- Continue famotidine Insomnia- Continue mirtazapine Remaining orders and notations as noted Resident Activity Tracking Resident Involvement: Resident Care Provided Care Provided: Adult Hospital Medicine
[2023-03-12] MEDS ORDERED: PROCHLORPERAZINE 5 MG in SYRINGE 4 ML IV ONE ×2 (03:15→17:00)
--- NOTE | 2023-03-12 03:16 | Emergency Department Note ---
Impression & Plan Anaplasmosis, Encephalopathy, Thrombocytopenia, Cough with hemoptysis Admit to the [facility] ED Provider Note NAME: FERMIN MORIN AGE: 72 SEX: M ARRIVES VIA: Walk-In INFORMANT: Patient, his son and [id number] ED PROVIDER(S): Oralia Roman DO CHIEF COMPLAINT: Fever/cough; altered mental status PLAN: Disposition: Admit to the [facility] Condition: Guarded MEDICAL DECISION MAKING: This is a 72-year-old male patient with history of HIV who presents to the [facility] department with fever/cough and worsening confusion. Patient had been seen in the emergency department earlier this week with fever, nausea, vomiting, and diarrhea. His symptoms seem to have worsened somewhat. Laboratory studies still reveal a decreased white blood cell count of 5.39. Platelet count has significantly dropped to 71,000. Procalcitonin is elevated at 3.19 however lactate is normal at 1.7. Coagulation studies are normal. BUN is 32 and creatinine is 1.5. The patient's transaminases are also significantly elevated. These laboratory studies were all concerning for an acute viral illness. I did have concerns for viral meningitis. A lumbar puncture was performed. CSF was normal except for a WBC count of 8. A VBG was performed and a pH was 7.47. PCO2 of 36. PO2 of 44. Bicarb was 26. Patient was bolused with IV normal saline solution after receiving double the IV contrast load during the CTA test for PE. Lyme testing was negative. 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 Patient was treated with IV doxycycline and IV Rocephin. I kept the pa taz and his family abreast of the situation. I discussed the case with the [facility] and they will evaluate for further inpatient care. Triage Nursing notes reviewed and agree them. Additional history obtained from patient's family members who are at the bedside Prior medical records reviewed including emergency department record from 2 days ago. Vital Signs: reviewed and remarkable for tachycardia Differential diagnosis: Sepsis, pulmonary embolism, viral meningitis, Lyme disease, anaplasmosis, bact erial meningitis, aspiration pneumonia ER treatment provided: monitoring and evaluation advisor Twelve-lead EKG Supplemental oxygen IV normal saline bolus IV Zofran IV doxycycline IV Rocephin Diagnostics interpreted by me: ECG: Sinus tachycardia at [address] segment elevation. There was a change to the patient's P wave morphology compared to an EKG from 2 days ago. There was no ectopy. Cardiac Monitoring: Sinus tachycardia at 118 Laboratory studies: See below Imaging studies: As per my independent interpretation Portable chest x-ray: No significant cardiomegaly or obvious pulmonary pathology CTA of the chest: See radiology report CT of the brain: See radiology report HPI: 72/M arrives for evaluation of fever/cough and confusion. The patient was seen here couple days ago with fever, lethargy, nausea, vomiting and diarrhea. He had a complete work-up in the emergency department which was fairly unremarkable. He was diagnosed with a viral illness and discharged home with expectant management instructions. Patient's symptoms have not improved and according to the family they have worsened. Patient now also has increasing shortness of breath and abdominal pain. Patient had been on a car ride to and from [place] approximately 2 weeks ago. He is developing increased confusion, insomnia and change in mental status. PAST MEDICAL HISTORY: HIV,previous history of meningitis; see below PAST SURGICAL HISTORY:See Below FAMILY HISTORY:See Below SOCIAL HISTORY:See Below HOME MEDICATIONS:See list ALLERGIES:See list VITALS:See Below PHYSICAL EXAMINATION: HEENT: Head - normocephalic and atraumatic. Pupils are equal, round, and reactive to light. Extraocular eye muscles are intact, and sclera are anicteric. Nose - moist nasal mucosa without discharge. Mouth - moist buccal mucosa. Oropharynx is nonerythematous and there is no tonsillar exudate or edema noted. Neck: Supple; no nuchal rigidity or cervical lymphadenopathy. Heart: Tachycardic rate and regular rhythm. There is a normal S1 and S2 with no murmurs, clicks, or gallops appreciated. Lungs: Clear to auscultation bilaterally with no wheezes, rales, or rhonchi. Abdomen: Soft, completely nontender, nondistended, with good bowel sounds. There are no palpable pulsatile masses or hepatosplenomegaly. There is no guarding, rigidity, or rebound noted. Extremities: No evidence of cyanosis, clubbing, or edema. There are easily palpable peripheral pulses. Skin: warm and dry with poor turgor and no rashes. Neuro: Patient is quite lethargic and slow to answer questions. However, he does answer them appropriately. He seems difficult to keep awake. ED COURSE: Times/Reassessments: 2310: Patient was evaluated in room A-11. A complete history and physical was performed. Patient was noted to be hypoxic at times and was placed on supplemental oxygen by nasal cannula. A twelve-lead EKG was obtained. An order was placed for continuous cardiac monitoring. Patient is in a sinus tachycardia at a rate of 118. Patient was bolused with IV normal saline solution. Patient had an episode of hemoptysis and appeared more tachypneic. He went for an emergent CTA of the chest to rule out PE. Patient was given a dose of IV Zofran. I performed a lumbar puncture as documented below. Patient then received IV doxycycline and IV Rocephin. He remained hemodynamic ally stable. I discussed the case with the [facility]ist. Lumbar Puncture Indication: Altered mental status and fever. Verbal consent was obtained after the risks and benefits were explained, including but not limited to headache, bleeding/clotting, scarring, infection, pain, and bone/joint/nerve damage. At this time, the risks of the procedure are less than the risks of NOT performing the procedure. A time out was taken and the correct patient and site identified. The patient was placed sitting up over a tray table and the back was prepped with betadine and draped in the standard fashion. The L3 intervertebral space was identified, anesthetized locally with 1% lidocaine without epinephrine, and the spinal needle was inserted through the skin with the bevel parallel to the dural fibers. The needle was carefully advanced into the lumbar cistern and 4 tubes of clear CSF was obtained. The stylet was replaced and the needle was removed. A bandaid was placed and the patient was placed in the supine position. The patient tolerated the procedure well and there were no complications. Oralia Roman DO Past Med/Surg History Medical History ADHD Colon polyps Diverticulosis GERD without esophagitis HIV disease Insomnia Lung nodule just monitoring every 2 yrs Surgical History History of colonoscopy History of eye surgery S/P cholecystectomy S/P hernia repair S/P wisdom tooth extraction Status post tendon repair Family History Mother Myocardial infarction Other Cancer Hyperlipidemia Hypertension Denies family history of Ovarian cancer Prostate cancer Breast cancer Colorectal cancer Social History Smoking Status: Former smoker Tobacco Type: Cigarettes Age Started Using Tobacco: 22; Age Quit Using Tobacco: 61; Cigarettes Per Day: 20; Second Hand Exposure: No; Do You Dip or Chew Tobacco: No; Hx Alcohol Use: Yes Alcohol type: wine Alcohol Intake Frequency: 2-4 x/Month Hx Substance Use: No Preferred Language: Uzbek Communication Ability: Effective Visual Impairment: No Limitations Hearing Ability: Normal Financial Business Analyst Required: No Beliefs That Will Affect Care: None marital status: / Current Living Situation: Alone current occupational status: retired How many Children do You have: 1 Feels Safe at Home: Yes Childhood Exposure to Second-Hand Smoke: Yes Diet: regular Dental Care, Regularly: Yes Physical Activity Frequency: Daily Seatbelt Use: always Sunscreen Use: No Assistive Devices: Denture - Upper, Denture - Lower and Glasses Allergies Allergies Allergy/AdvReac Type Severity Reaction Status Date / Time Penicillins Allergy Unknown A Verified 11/29/22 08:38 CHILD, INTERNAL BLEEDING Home Meds Home Medications Medication Instructions Recorded Confirmed bictegravir 50 mg-emtricitabine 1 tab PO HS 01/04/22 03/12/23 200 mg-tenofovir alafenam 25 mg tablet (Biktarvy) famotidine 20 mg tablet 20 mg PO HS 03/12/23 03/12/23 Previous Rx's Medication Instructions Recorded mirtazapine 30 mg tablet 30 mg PO HS insomnia #90 tabs 12/03/22 zolpidem 10 mg tablet 10 mg PO HS PRN insomnia #30 tabs 02/07/23 methylphenidate HCl 5 mg tablet 5 mg PO BID #60 tabs 03/10/23 Results & Data (ED) Vital Signs Vital Signs - 24 hr 03/11/23 22:27 03/11/23 22:46 03/11/23 23:30 Temperature 37.5 C Temperature Source Temporal Artery Scan Pulse Rate 138 H 129 H Pulse Rate [Finger] Respiratory Rate 18 28 H Respiratory Effort / Characteristics Non-Labored Spontaneous Non-Labored Spontaneous Respiratory Depth Normal Shallow Blood Pressure 118/71 Blood Pressure [Right Arm] 124/98 Blood Pressure Mean 86 Blood Pressure Mean [Right Arm] 106 Blood Pressure Position Sitting Pulse Oximetry 90 93 Oxygen Delivery Method Room Air Room Air Oxygen Flow Rate Sepsis Recent Fever Within 48 Hours Yes Sepsis New/Unexplained Change in Mental Status No Sepsis Action Taken by Nursing No Action Required 03/11/23 23:32 03/12/23 00:13 Temperature Temperature Source Pulse Rate Pulse Rate [Finger] 121 H Respiratory Rate 30 H Respiratory Effort / Characteristics Labored Respiratory Depth Shallow Blood Pressure Blood Pressure [Right Arm] 147/75 H Blood Pressure Mean Blood Pressure Mean [Right Arm] 99 Blood Pressure Position Pulse Oximetry 93 97 Oxygen Delivery Method Nasal Cannula Oxymask Oxygen Flow Rate 3 3 Sepsis Recent Fever Within 48 Hours Sepsis New/Unexplained Change in Mental Status Sepsis Action Taken by Nursing Laboratory Data 03/11/23 23:14 03/11/23 23:14 Lab Results 03/11/23 03/11/23 03/11/23 Range/Units 23:14 23:14 23:14 WBC 5.39 (4.8-10.8) K/ul RBC 4.78 (4.70-6.10) M/uL Hgb 15.4 (14.0-18.0) g/dl Hct 43.4 (42.0-52.0) % MCV 90.8 (80.0-100.0) fL MCH 32.2 (25.0-34.0) pg MCHC 35.5 (32.0-36.0) g/dL RDW Std Deviation 46.4 H (36.4-46.3) fL RDW Coeff of Aracelis 13.7 (11.5-14.5) % Plt Count 71 L (130-400) K/uL MPV 11.9 (9.4-12.4) fL Immature Gran % (Auto) 0.4 % Neut % (Auto) 72.1 % Lymph % (Auto) 23.0 % [place] % (Auto) 4.1 % Eos % (Auto) 0.0 % Baso % (Auto) 0.4 % Neut # (Auto) 3.89 (1.40-6.50) K/uL Lymph # (Auto) 1.24 (1.2-3.4) K/uL [place] # (Auto) 0.22 (0.11-0.59) K/uL Eos # (Auto) 0.00 (0-0.50) K/uL Baso # (Auto) 0.02 (0-0.2) K/uL Immature Gran # (Auto) 0.02 (0.01-0.20) K/uL Platelet Estimate Decreased L (Normal) RBC Morphology Unremarkable PT 11.3 (9.0-12.0) Seconds INR 1.0 (0.9-1.1) APTT 31.7 H (21.0-31.0) Seconds PTT Ratio 1.1 VBG pH (7.36-7.41) VBG pCO2 (38-50) mmHg VBG pO2 mmHg VBG HCO3 mmol/L VBG O2 Saturation % VBG Base Excess mEq/L Sodium 133 L (136-145) mmol/L Potassium 3.9 (3.5-5.1) mmol/L Chloride 98 (98-107) mmol/L Carbon Dioxide 25 (21-32) mmol/L Anion Gap 10 (3-11) BUN 32 H (6-23) mg/dl Creatinine 1.51 H (0.6-1.4) mg/dl Est Cr Clr Drug Dosing 47.1 ml/min Est GFR ( Amer) 52.7 ml/min Est GFR (Non-Af Amer) 45.5 ml/min BUN/Creatinine Ratio 21.2 H (10-20) Glucose 121 H (70-99(Fasting)) mg/dl Lactate (0.4-2.0) mmol/L Calcium 9.4 (8.6-10.3) mg/dl Magnesium 2.1 (1.7-2.4) mg/dl Total Bilirubin 0.7 (0.2-1.0) mg/dl Direct Bilirubin 0.2 (0-0.2) mg/dl AST 133 H (13-39) U/L ALT 111 H (7-52) U/L Alkaline Phosphatase 97 (34-104) U/L Troponin I High Sens 14.5 (0-20) pg/ml Total Protein 7.5 (6.0-8.3) gm/dl Albumin 3.8 (3.4-5.0) gm/dl Procalcitonin (0-0.5) ng/ml Fluid Comment CSF Appearance CSF Color Xanthrochromic CSF WBC (0-5) CSF RBC (0-) CSF Cell Count Tube # CSF Chemistry Tube # CSF Glucose (40-70) mg/dl CSF Total Protein (15-45) mg/dl Adenovirus (PCR) (NotDetected) Anaplasma Smear Babesia Smear B. pertussis DNA (PCR) (NotDetected) B.parapertussis DNA PCR (NotDetected) Lyme Disease IgG Ab (Negative) Lyme Disease IgM Ab (Negative) C. pneumoniae DNA (PCR) (NotDetected) Coronavirus OC43 (PCR) (NotDetected) Coronavirus HKU1 (PCR) (NotDetected) Coronavirus 229E (PCR) (NotDetected) SARS-CoV-2 (PCR) (NotDetected) Coronavirus NL63 (PCR) (NotDetected) Human Metapneumovir PCR (NotDetected) Influenza Type A (PCR) (NotDetected) Influenza Type B (PCR) (NotDetected) M. pneumoniae (PCR) (NotDetected) Parainfluenza 1 (PCR) (NotDetected) Parainfluenza 2 (PCR) (NotDetected) Parainfluenza 3 (PCR) (NotDetected) Parainfluenza 4 (PCR) (NotDetected) RSV (PCR) (NotDetected) Entero/Rhino (PCR) (NotDetected) 03/11/23 03/11/23 03/11/23 Range/Units 23:14 23:14 23:14 WBC (4.8-10.8) K/ul RBC (4.70-6.10) M/uL Hgb (14.0-18.0) g/dl Hct (42.0-52.0) % MCV (80.0-100.0) fL MCH (25.0-34.0) pg MCHC (32.0-36.0) g/dL RDW Std Deviation (36.4-46.3) fL RDW Coeff of Aracelis (11.5-14.5) % Plt Count (130-400) K/uL MPV (9.4-12.4) fL Immature Gran % (Auto) % Neut % (Auto) % Lymph % (Auto) % [place] % (Auto) % Eos % (Auto) % Baso % (Auto) % Neut # (Auto) (1.40-6.50) K/uL Lymph # (Auto) (1.2-3.4) K/uL [place] # (Auto) (0.11-0.59) K/uL Eos # (Auto) (0-0.50) K/uL Baso # (Auto) (0-0.2) K/uL Immature Gran # (Auto) (0.01-0.20) K/uL Platelet Estimate (Normal) RBC Morphology PT (9.0-12.0) Seconds INR (0.9-1.1) APTT (21.0-31.0) Seconds PTT Ratio VBG pH 7.47 H (7.36-7.41) VBG pCO2 36 L (38-50) mmHg VBG pO2 44 mmHg VBG HCO3 26 mmol/L VBG O2 Saturation 77.6 % VBG Base Excess 2.7 mEq/L Sodium (136-145) mmol/L Potassium (3.5-5.1) mmol/L Chloride (98-107) mmol/L Carbon Dioxide (21-32) mmol/L Anion Gap (3-11) BUN (6-23) mg/dl Creatinine (0.6-1.4) mg/dl Est Cr Clr Drug Dosing ml/min Est GFR ( Amer) ml/min Est GFR (Non-Af Amer) ml/min BUN/Creatinine Ratio (10-20) Glucose (70-99(Fasting)) mg/dl Lactate 1.7 (0.4-2.0) mmol/L Calcium (8.6-10.3) mg/dl Magnesium (1.7-2.4) mg/dl Total Bilirubin (0.2-1.0) mg/dl Direct Bilirubin (0-0.2) mg/dl AST (13-39) U/L ALT (7-52) U/L Alkaline Phosphatase (34-104) U/L Troponin I High Sens (0-20) pg/ml Total Protein (6.0-8.3) gm/dl Albumin (3.4-5.0) gm/dl Procalcitonin 3.19 H (0-0.5) ng/ml Fluid Comment CSF Appearance CSF Color Xanthrochromic CSF WBC (0-5) CSF RBC (0-) CSF Cell Count Tube # CSF Chemistry Tube # CSF Glucose (40-70) mg/dl CSF Total Protein (15-45) mg/dl Adenovirus (PCR) (NotDetected) Anaplasma Smear Babesia Smear B. pertussis DNA (PCR) (NotDetected) B.parapertussis DNA PCR (NotDetected) Lyme Disease IgG Ab (Negative) Lyme Disease IgM Ab (Negative) C. pneumoniae DNA (PCR) (NotDetected) Coronavirus OC43 (PCR) (NotDetected) Coronavirus HKU1 (PCR) (NotDetected) Coronavirus 229E (PCR) (NotDetected) SARS-CoV-2 (PCR) (NotDetected) Coronavirus NL63 (PCR) (NotDetected) Human Metapneumovir PCR (NotDetected) Influenza Type A (PCR) (NotDetected) Influenza Type B (PCR) (NotDetected) M. pneumoniae (PCR) (NotDetected) Parainfluenza 1 (PCR) (NotDetected) Parainfluenza 2 (PCR) (NotDetected) Parainfluenza 3 (PCR) (NotDetected) Parainfluenza 4 (PCR) (NotDetected) RSV (PCR) (NotDetected) Entero/Rhino (PCR) (NotDetected) 03/11/23 03/11/23 03/12/23 Range/Units 23:14 23:14 00:25 WBC (4.8-10.8) K/ul RBC (4.70-6.10) M/uL Hgb (14.0-18.0) g/dl Hct (42.0-52.0) % MCV (80.0-100.0) fL MCH (25.0-34.0) pg MCHC (32.0-36.0) g/dL RDW Std Deviation (36.4-46.3) fL RDW Coeff of Aracelis (11.5-14.5) % Plt Count (130-400) K/uL MPV (9.4-12.4) fL Immature Gran % (Auto) % Neut % (Auto) % Lymph % (Auto) % [place] % (Auto) % Eos % (Auto) % Baso % (Auto) % Neut # (Auto) (1.40-6.50) K/uL Lymph # (Auto) (1.2-3.4) K/uL [place] # (Auto) (0.11-0.59) K/uL Eos # (Auto) (0-0.50) K/uL Baso # (Auto) (0-0.2) K/uL Immature Gran # (Auto) (0.01-0.20) K/uL Platelet Estimate (Normal) RBC Morphology PT (9.0-12.0) Seconds INR (0.9-1.1) APTT (21.0-31.0) Seconds PTT Ratio VBG pH (7.36-7.41) VBG pCO2 (38-50) mmHg VBG pO2 mmHg VBG HCO3 mmol/L VBG O2 Saturation % VBG Base Excess mEq/L Sodium (136-145) mmol/L Potassium (3.5-5.1) mmol/L Chloride (98-107) mmol/L Carbon Dioxide (21-32) mmol/L Anion Gap (3-11) BUN (6-23) mg/dl Creatinine (0.6-1.4) mg/dl Est Cr Clr Drug Dosing ml/min Est GFR ( Amer) ml/min Est GFR (Non-Af Amer) ml/min BUN/Creatinine Ratio (10-20) Glucose (70-99(Fasting)) mg/dl Lactate (0.4-2.0) mmol/L Calcium (8.6-10.3) mg/dl Magnesium (1.7-2.4) mg/dl Total Bilirubin (0.2-1.0) mg/dl Direct Bilirubin (0-0.2) mg/dl AST (13-39) U/L ALT (7-52) U/L Alkaline Phosphatase (34-104) U/L Troponin I High Sens (0-20) pg/ml Total Protein (6.0-8.3) gm/dl Albumin (3.4-5.0) gm/dl Procalcitonin (0-0.5) ng/ml Fluid Comment CSF Appearance CSF Color Xanthrochromic CSF WBC (0-5) CSF RBC (0-) CSF Cell Count Tube # CSF Chemistry Tube # CSF Glucose (40-70) mg/dl CSF Total Protein (15-45) mg/dl Adenovirus (PCR) Not Detected (NotDetected) Anaplasma Smear See Comment A Babesia Smear See Comment B. pertussis DNA (PCR) Not Detected (NotDetected) B.parapertussis DNA PCR Not Detected (NotDetected) Lyme Disease IgG Ab Negative (Negative) Lyme Disease IgM Ab Equivocal A (Negative) C. pneumoniae DNA (PCR) Not Detected (NotDetected) Coronavirus OC43 (PCR) Not Detected (NotDetected) Coronavirus HKU1 (PCR) Not Detected (NotDetected) Coronavirus 229E (PCR) Not Detected (NotDetected) SARS-CoV-2 (PCR) Not Detected (NotDetected) Coronavirus NL63 (PCR) Not Detected (NotDetected) Human Metapneumovir PCR Not Detected (NotDetected) Influenza Type A (PCR) Not Detected (NotDetected) Influenza Type B (PCR) Not Detected (NotDetected) M. pneumoniae (PCR) Not Detected (NotDetected) Parainfluenza 1 (PCR) Not Detected (NotDetected) Parainfluenza 2 (PCR) Not Detected (NotDetected) Parainfluenza 3 (PCR) Not Detected (NotDetected) Parainfluenza 4 (PCR) Not Detected (NotDetected) RSV (PCR) Not Detected (NotDetected) Entero/Rhino (PCR) Not Detected (NotDetected) 03/12/23 03/12/23 03/12/23 Range/Units 01:13 01:13 01:13 WBC (4.8-10.8) K/ul RBC (4.70-6.10) M/uL Hgb (14.0-18.0) g/dl Hct (42.0-52.0) % MCV (80.0-100.0) fL MCH (25.0-34.0) pg MCHC (32.0-36.0) g/dL RDW Std Deviation (36.4-46.3) fL RDW Coeff of Aracelis (11.5-14.5) % Plt Count (130-400) K/uL MPV (9.4-12.4) fL Immature Gran % (Auto) % Neut % (Auto) % Lymph % (Auto) % [place] % (Auto) % Eos % (Auto) % Baso % (Auto) % Neut # (Auto) (1.40-6.50) K/uL Lymph # (Auto) (1.2-3.4) K/uL [place] # (Auto) (0.11-0.59) K/uL Eos # (Auto) (0-0.50) K/uL Baso # (Auto) (0-0.2) K/uL Immature Gran # (Auto) (0.01-0.20) K/uL Platelet Estimate (Normal) RBC Morphology PT (9.0-12.0) Seconds INR (0.9-1.1) APTT (21.0-31.0) Seconds PTT Ratio VBG pH (7.36-7.41) VBG pCO2 (38-50) mmHg VBG pO2 mmHg VBG HCO3 mmol/L VBG O2 Saturation % VBG Base Excess mEq/L Sodium (136-145) mmol/L Potassium (3.5-5.1) mmol/L Chloride (98-107) mmol/L Carbon Dioxide (21-32) mmol/L Anion Gap (3-11) BUN (6-23) mg/dl Creatinine (0.6-1.4) mg/dl Est Cr Clr Drug Dosing ml/min Est GFR ( Amer) ml/min Est GFR (Non-Af Amer) ml/min BUN/Creatinine Ratio (10-20) Glucose (70-99(Fasting)) mg/dl Lactate (0.4-2.0) mmol/L Calcium (8.6-10.3) mg/dl Magnesium (1.7-2.4) mg/dl Total Bilirubin (0.2-1.0) mg/dl Direct Bilirubin (0-0.2) mg/dl AST (13-39) U/L ALT (7-52) U/L Alkaline Phosphatase (34-104) U/L Troponin I High Sens (0-20) pg/ml Total Protein (6.0-8.3) gm/dl Albumin (3.4-5.0) gm/dl Procalcitonin (0-0.5) ng/ml Fluid Comment CSF Appearance Clear CSF Color Colorless Xanthrochromic No xanthochromia CSF WBC 8 H (0-5) CSF RBC 2 (0-) CSF Cell Count Tube # 3 CSF Chemistry Tube # 1 CSF Glucose 70 (40-70) mg/dl CSF Total Protein 43.4 (15-45) mg/dl Adenovirus (PCR) (NotDetected) Anaplasma Smear Babesia Smear B. pertussis DNA (PCR) (NotDetected) B.parapertussis DNA PCR (NotDetected) Lyme Disease IgG Ab (Negative) Lyme Disease IgM Ab (Negative) C. pneumoniae DNA (PCR) (NotDetected) Coronavirus OC43 (PCR) (NotDetected) Coronavirus HKU1 (PCR) (NotDetected) Coronavirus 229E (PCR) (NotDetected) SARS-CoV-2 (PCR) (NotDetected) Coronavirus NL63 (PCR) (NotDetected) Human Metapneumovir PCR (NotDetected) Influenza Type A (PCR) (NotDetected) Influenza Type B (PCR) (NotDetected) M. pneumoniae (PCR) (NotDetected) Parainfluenza 1 (PCR) (NotDetected) Parainfluenza 2 (PCR) (NotDetected) Parainfluenza 3 (PCR) (NotDetected) Parainfluenza 4 (PCR) (NotDetected) RSV (PCR) (NotDetected) Entero/Rhino (PCR) (NotDetected) Administered Medications Discontinued Medications Cefepime HCl (Maxipime) 2,000 mg in 20 mls @ 5 mls/min IV NOW STA; Protocol Stop: 03/11/23 22:45 Last Admin: 03/11/23 23:23 Dose: 5 mls/min Documented By: SALVADOR Sodium Chloride (Nss 1000ml) 1,000 mls @ 999 mls/hr IV .Q1H1M PREETHI Stop: 03/12/23 00:45 Last Infusion: 03/12/23 01:29 Dose: 0 mls/hr Documented By: Admin: 03/12/23 00:24 Dose: Not Given Documented By: Admin: 03/11/23 23:27 Dose: 999 mls/hr Documented By: SALVADOR Sodium Chloride (Nss 1000ml) 1,000 mls @ 999 mls/hr IV .Q1H1M PREETHI Stop: 03/11/23 23:45 Last Infusion: 03/12/23 01:29 Dose: 0 mls/hr Documented By: Admin: 03/11/23 23:27 Dose: 999 mls/hr Documented By: SALVADOR Sodium Chloride (Nss 1000ml) 500 mls @ 999 mls/hr IV .Q31M PREETHI Stop: 03/11/23 23:15 Last Infusion: 03/12/23 00:14 Dose: 0 mls/hr Documented By: Admin: 03/11/23 23:28 Dose: 999 mls/hr Documented By: SALVADOR Doxycycline Hyclate 100 mg/ (Dextrose) 110 mls @ 50 mls/hr IV NOW STA Stop: 03/12/23 04:03 Last Infusion: 03/12/23 05:41 Dose: 0 mls/hr Documented By: Admin: 03/12/23 02:09 Dose: 50 mls/hr Documented By: SALVADOR Ceftriaxone Sodium 1,000 mg/ (Dextrose) 50 mls @ 100 mls/hr IV NOW STA Stop: 03/12/23 02:39 Last Infusion: 03/12/23 05:41 Dose: 0 mls/hr Documented By: Admin: 03/12/23 05:04 Dose: 100 mls/hr Documented By: SALVADOR Prochlorperazine 5 mg/ Syringe 5 mls @ 5 mls/min IV 0315 ONE Stop: 03/12/23 03:16 Last Admin: 03/12/23 03:30 Dose: 5 mls/min Documented By: SALVADOR Ioversol (Optiray 320 125ml) 119 ml IV ONCE ONE Stop: 03/12/23 00:04 Last Admin: 03/12/23 00:03 Dose: 119 ml Documented By: GENTRY Ondansetron HCl (Ondansetron Inj 2 Mg/Ml 2 Ml Vial) Confirm Administered Dose 4 mg .ROUTE .STK-MED ONE Stop: 03/12/23 01:06 Last Admin: 03/12/23 01:37 Dose: 4 mg Documented By: SALVADOR Ondansetron HCl (Ondansetron Inj 2 Mg/Ml 2 Ml Vial) 4 mg IV NOW STA Stop: 03/12/23 01:32 Last Admin: 03/12/23 01:37 Dose: 4 mg Documented By: SALVADOR Imaging Data Radiologist's Impression: Chest CTA 03/11/23 22:42 Exam(s): CTA CHEST IV Amt: 119ML OF OPTIRAY 320 EXAM: CT Angiography Chest With Intravenous Contrast CLINICAL HISTORY: Reason for exam: PE. TECHNIQUE: Axial computed tomographic angiography images of the chest with intravenous contrast. CTDI is 33.24 mGy and DLP is 717.99 mGy-cm. Automated exposure control was utilized for the study. A dose lowering technique was utilized adhering to the principles of ALARA. MIP reconstructed images were created and reviewed. COMPARISON: CT chest 01/04/23 FINDINGS: Pulmonary arteries: Adequate pulmonary artery opacification. Normal caliber main pulmonary artery. No pulmonary embolism. Aorta: No acute findings. No thoracic aortic aneurysm or dissection. Lungs: Stable 6 mm pulmonary micronodule right lower lobe (series 6, image 67). Centrilobular emphysema. No consolidation or mass. Pleural space: Unremarkable. No pleural effusion or pneumothorax. Heart: Unremarkable. Normal heart size. Mild atherosclerosis of the left anterior descending coronary artery. No RV strain. No pericardial effusion. Bones/joints: No acute fracture or dislocation. Soft tissues: Unremarkable. Lymph nodes: Unremarkable. No adenopathy. Gallbladder and bile ducts: Cholecystectomy. IMPRESSION: 1. No evidence of acute pulmonary embolism. 2. Stable 6 mm pulmonary micronodule right lower lobe. Patient is undergoing annual lung screening. 3. Centrilobular emphysema. Electronically signed by: Norm Juárez M.D. 03/12/23 00:[address] 03/12/23 02:10 Exam(s): CT HEAD Without Contrast EXAM: CT Head Without Intravenous Contrast CLINICAL HISTORY: Reason for exam: altered ms. TECHNIQUE: Axial computed tomography images of the head/brain without intravenous contrast. CTDI is 37.01 mGy and DLP is 625.8 mGy-cm. Automated exposure control was utilized for the study. A dose lowering technique was utilized adhering to the principles of ALARA. COMPARISON: 04/23/14 FINDINGS: Brain: Cortical cerebral volume loss. Melendez-white matter differentiation maintained. No acute intracranial hemorrhage, mass- effect, or edema. Ventricles: Unremarkable. No hydrocephalus. Bones/joints: Unremarkable. No acute fracture. Soft tissues: Unremarkable. Sinuses: Unremarkable as visualized. No acute sinusitis. Mastoid air cells: Unremarkable as visualized. No mastoid effusion. IMPRESSION: No acute intracranial process. Electronically signed by: Norm Juárez M.D. 03/12/23 02:52 AM Discharge Plan Visit Data Chief Complaint: Lethargic Stated Complaint: FEVER,LABORED BREATHING,LETHARGIC ED Provider: Oralia Roman Discharge Problem: Anaplasmosis, Encephalopathy, Thrombocytopenia, Cough with hemoptysis Patient Disposition: Admitted As Inpatient Discharge Instructions Interventions: ED Discharge Assessment Last Done: 03/12/23 05:11
[2023-03-12 04:26] LABS: Appearance Urine Clear (Clear); Bacteria Urine Automated Negative (Negative); Bilirubin Urine Negative (Negative); Blood Urine 2+ (Negative); Color Urine Dark Yellow; Epithelial Cell Urine Auto >30 /lpf (0-5); Glucose Urine UA Negative (Negative); Ketones Urine Trace (Negative); Leukocyte Esterase Urine Negative (Negative); Nitrite Urine Negative (Negative); Protein Urine 3+ (Negative); RBC Urine Automated 0-4 /hpf (0-4); Specific Gravity Urine > 1.045 (1.000-1.030); Urobilinogen Urine Negative (Negative)
[2023-03-12] MEDS ORDERED: POLYETHYLENE (MIRALAX) 17 GM PACK PO PRN (05:56)
[2023-03-12] MEDS ORDERED: ONDANSETRON INJ 2 MG/ML 2 ML VIAL IV PRN (05:56)
--- NOTE | 2023-03-12 07:44 | XRay Report ---
XR chest 1V portable CLINICAL HISTORY: Sepsis TECHNIQUE: Single frontal radiograph of the chest was obtained. Comparison: Comparison is made to chest radiograph 03/08/2023 FINDINGS: No lines and tubes are seen. The cardiomediastinal silhouette is normal. The lungs are clear. No evid ence of pleural effusion or pneumothorax. IMPRESSION: No acute abnormalities and in particular no radiographic evidence of pneumonia. ACT 112: Negative or not required by law. Electronically signed by: Kilo Chung M.D. 03/12/2023 7:41 AM
--- NOTE | 2023-03-12 07:50 | Hospitalist Progress Note ---
Date of Service March 12, 2023 Assessment & Plan (1) Anaplasmosis: Plan: 72 y/o male with PMHx ADHD, HIV/?AIDS, and insomnia here for lethargy AMS found to have anaplasmosis with concern for sepsis. Anaplasmosis Patient presented with septic like picture - tachycardia, tachypnea, leukopenia, fever, hypoxia, alerted mental status. Empirically started on cefepime. Blood smear showing anaplasmosis. Explains current symptoms - tachycardia, tachypnea fatigue, elevated LFTs, headache etc. Patient started on doxy and ceftriaxone as there was concern for CSF involvement. Patient was also fluid resuscitated and started on supplemental oxygen. Ceftriaxone does not cover Anaplasmosis so this was discontinued. Imaging: CT head: No acute intracranial process CTA chest: No evidence of acute pulmonary embolism. Stable 6 mm pulmonary micronodule right lower lobe. Patient is undergoing annual lung screening. Centrilobular emphysema. Work up: Anaplasmosis positive. Lyme disease equivocal. Babesia negative - PCR sent. LP with 8 WBCs otherwise WNL -Trend CBC -Zofran PRN -Supportive Care -Doxycycline Tachypnea, tachycardia, hypoxia Patient tachycardic, tachypneic, new oxygen requirement. CTA chest negative for VTE. CXR did not show signs of congestion or pulmonary congestion. Likely in the setting of anaplasmosis. Should improve with time. Abdominal pain Likely in the setting of tick borne illness. Abdominal exam benign. KUB without signs of obstruction. Should improve with time. ADHD Continue methylphenidate HIV/?AIDS Unclear if patient has had an AIDs defining illness. CD4 count >500 on last check. Stable on HARRT with Biktarvy. Will recheck CD4 count. GERD Continue famotidine Insomnia Continue mirtazapine FENa: regular Code Status: Full DVT PPX: SCDs PT/OT: ordered Dispo: med/tele (2) Acquired immune deficiency syndrome: (3) GERD without esophagitis: (4) ADHD, predominantly inattentive type: Admission and Anticipated Discharge Date Admission Date: March 12, 2023 Supervising Physician Co-Signing Physician Notes I personally examined the patient and verified all tejeda points of history and exam, discussed case, and agree with decision making with Dr Rodrigues. Still feels pretty lousy and having a lot of hiccups Vitals noted, in general he is awake and alert pleasant no distress. HEENT normocephalic atraumatic mucous membranes moist. Breathing unlabored no accessory muscle use good effort bibasilar rales. Skin shows no rashes no pallor or icterus. Attempted phrenic nerve pressure to alleviate hiccupsno response Anaplasmosisanticipate improvement on doxycyclinecontinue, continue supportive caregiven that the hiccups just started whenever he was sickfor now we will assume that the to go togetherobviously if the hiccups do not improve can do more of a secondary work-up for this in the meantime give trial of Compazine. Hypoxia is probably fatigue and atelectasis given chest x-ray is clearrales certainly would fit with this as well otherwise as above Subjective Patient reports feeling exhausted. All he wants to do is sleep. In addition patient reports having "burning" abdominal pain after eating. No nausea or vomiting. No change in bowel habits. No fevers, chills, CP, SOB. Review of Systems Review of Systems: See HPI Physical Exam Physical Exam: Gen: tachypneic and ill appearing male with increased work of breathing saturating adequately on 2L NC HEENT: AT NC MMM EOMI Resp: CTAB no wheezing CV: tachycardic, regular rhythm, no m/r/g Abd: soft, non-tender, non-distended, no rebound or guarding MSK: no gross deformities Extremities: no edema, no swelling, no calf tenderness Psych: appropriate mood and affect Neuro: alert and oriented Results & Data Results & Data Vital Signs (Past 12 Hours) Vital Signs Temp Pulse Pulse Resp BP BP BP 03/12/23 07:48 38.1 C H 100 H 18 119/71 03/12/23 06:22 03/12/23 06:18 92 H 20 03/12/23 06:09 37.6 C H 105 H 20 107/69 03/12/23 05:06 108 H 143/75 H 03/12/23 04:11 116 H 20 03/12/23 03:05 116 H 03/12/23 03:04 110 H 20 127/64 03/12/23 00:13 121 H 30 H 147/75 H 03/11/23 23:32 03/11/23 23:30 28 H 124/98 03/11/23 22:46 129 H 03/11/23 22:27 37.5 C 138 H 18 118/71 Pulse Ox O2 Del Method O2 Flow Rate 03/12/23 07:48 94 Nasal Cannula 2 03/12/23 06:22 Nasal Cannula 2 03/12/23 06:18 94 Nasal Cannula 2 03/12/23 06:09 89 L Room Air 03/12/23 05:06 92 Room Air 03/12/23 04:11 96 Oxymask 4 03/12/23 03:05 03/12/23 03:04 96 Oxymask 4 03/12/23 00:13 97 Oxymask 3 03/11/23 23:32 93 Nasal Cannula 3 03/11/23 23:30 93 Room Air 03/11/23 22:46 03/11/23 22:27 90 Room Air Laboratory Results 03/11/23 23:14 03/11/23 23:14 Diagnostic Findings Chest CTA 03/11/23 22:42 Exam(s): CTA CHEST IV Amt: 119ML OF OPTIRAY 320 EXAM: CT Angiography Chest With Intravenous Contrast CLINICAL HISTORY: Reason for exam: PE. TECHNIQUE: Axial computed tomographic angiography images of the chest with intravenous contrast. CTDI is 33.24 mGy and DLP is 717.99 mGy-cm. Automated exposure control was utilized for the study. A dose lowering technique was utilized adhering to the principles of ALARA. MIP reconstructed images were created and reviewed. COMPARISON: CT chest 01/04/23 FINDINGS: Pulmonary arteries: Adequate pulmonary artery opacification. Normal caliber main pulmonary artery. No pulmonary embolism. Aorta: No acute findings. No thoracic aortic aneurysm or dissection. Lungs: Stable 6 mm pulmonary micronodule right lower lobe (series 6, image 67). Centrilobular emphysema. No consolidation or mass. Pleural space: Unremarkable. No pleural effusion or pneumothorax. Heart: Unremarkable. Normal heart size. Mild atherosclerosis of the left anterior descending coronary artery. No RV strain. No pericardial effusion. Bones/joints: No acute fracture or dislocation. Soft tissues: Unremarkable. Lymph nodes: Unremarkable. No adenopathy. Gallbladder and bile ducts: Cholecystectomy. IMPRESSION: 1. No evidence of acute pulmonary embolism. 2. Stable 6 mm pulmonary micronodule right lower lobe. Patient is undergoing annual lung screening. 3. Centrilobular emphysema. Chest X-Ray 03/11/23 22:43 XR chest 1V portable CLINICAL HISTORY: Sepsis TECHNIQUE: Single frontal radiograph of the chest was obtained. Comparison: Comparison is made to chest radiograph 03/08/2023 FINDINGS: No lines and tubes are seen. The cardiomediastinal silhouette is normal. The lungs are clear. No evidence of pleural effusion or pneumothorax. IMPRESSION: No acute abnormalities and in particular no radiographic evidence of pneumonia. Head CT 03/12/23 02:10 Exam(s): CT HEAD Without Contrast EXAM: CT Head Without Intravenous Contrast CLINICAL HISTORY: Reason for exam: altered ms. TECHNIQUE: Axial computed tomography images of the head/brain without intravenous contrast. CTDI is 37.01 mGy and DLP is 625.8 mGy-cm. Automated exposure control was utilized for the study. A dose lowering technique was utilized adhering to the principles of ALARA. COMPARISON: 04/23/14 FINDINGS: Brain: Cortical cerebral volume loss. Melendez-white matter differentiation maintained. No acute intracranial hemorrhage, mass-effect, or edema. Ventricles: Unremarkable. No hydrocephalus. Bones/joints: Unremarkable. No acute fracture. Soft tissues: Unremarkable. Sinuses: Unremarkable as visualized. No acute sinusitis. Mastoid air cells: Unremarkable as visualized. No mastoid effusion. IMPRESSION: No acute intracranial process. KUB X-Ray 03/12/23 09:06 XR KUB/Abdomen 1 view CLINICAL HISTORY: r/o obstruction TECHNIQUE: 1 view of the abdomen was obtained. Comparison: None available at the time of this dictation. FINDINGS: Cholecystomy clips are seen in the right upper quadrant. Postsurgical changes of hernia repair are noted in the right lower pelvis. The osseous structures are grossly unremarkable. The bowel gas pattern is nonobstructive. Small stool burden is seen. IMPRESSION: Nonobstructive bowel gas pattern. Chest X-Ray 03/12/23 10:54 XR chest 2V PA/lateral CLINICAL HISTORY: tachypneic, increased work of breathing TECHNIQUE: 2 views of the chest were obtained. Comparison: Comparison is made to chest radiograph 03/11/2023 FINDINGS: No lines and tubes are seen. The cardiomediastinal silhouette is normal. Trace atelectasis in the left lung base. No evidence of pleural effusion or pneumothorax. IMPRESSION: No acute chest disease Resident Activity Tracking Resident Involvement: Resident Care Provided Care Provided: [facility]
[2023-03-12] MEDS: PANTOprazole 40 MG TAB PO SCH (08:33)
[2023-03-12] MEDS: METHYLPHENIDATE HCL 5 MG TABLET PO SCH ×2 (08:33→21:58)
[2023-03-12] MEDS: ACETAMINOPHEN 325 MG TAB PO PRN (09:05)
--- NOTE | 2023-03-12 10:13 | XRay Report ---
XR KUB/Abdomen 1 view CLINICAL HISTORY: r/o obstruction TECHNIQUE: 1 view of the abdomen was obtained. Comparison: None available at the time of this dictation. FINDINGS: Cholecystomy clips are seen in the right upper quadrant. Postsurgical changes of hernia repair are no rogerio in the right lower pelvis. The osseous structures are grossly unremarkable. The bowel gas pattern is nonobstructive. Small stool burden is seen. IMPRESSION: Nonobstructive bowel gas pattern. ACT 112: Negative or not required by law. Electronically signed by: Kilo Chung M.D. 03/12/2023 10:12 AM
--- NOTE | 2023-03-12 12:07 | XRay Report ---
XR chest 2V PA/lateral CLINICAL HISTORY: tachypneic, increased work of breathing TECHNIQUE: 2 views of the chest were obtained. Comparison: Comparison is made to chest radiograph 03/11/2023 FINDINGS: No lines and tubes are seen. The cardiomediastinal silhouette is normal. Trace atelectasis in the lef t lung base. No evidence of pleural effusion or pneumothorax. IMPRESSION: No acute chest disease. ACT 112: Negative or not required by law. Electronically signed by: Kilo Chung M.D. 03/12/2023 12:06 PM
[2023-03-12] MEDS: DOXYCYCLINE HYCLATE 100 MG in DEXTROSE 5% 100 ML IV SCH (14:28)
--- NOTE | 2023-03-12 17:43 | Electrocardiogram Report ---
Test Reason : Blood Pressure : / mmHG Vent. Rate : 131 BPM Atrial Rate : 131 BPM P-R Int : 168 ms QRS Dur : 090 ms QT Int : 270 ms P-R-T Axes : 071 055 048 degrees QTc Int : 398 ms Sinus tachycardia Possible Left atrial enlargement Borderline ECG When compared with ECG of 08-MAR-2023 10:59, No significant change was found Confirmed by Teofilo Nj ([id number]) on 03/12/2023 5:43:35 PM Referred By: REFERRED SELF Confirmed By:Teofilo Nj
[2023-03-12] MEDS ORDERED: ZOLPIDEM TARTRATE 10 MG TAB PO PRN (18:03)
[2023-03-12] MEDS: BIKTARVY PO SCH (21:28)
[2023-03-12] MEDS: MIRTAZAPINE TAB 15 MG TAB PO SCH (21:28)
[2023-03-12] MEDS: FAMOTIDINE 20 MG TAB PO SCH (21:29)
--- NOTE | 2023-03-12 22:22 | Billing Data ---
Date of Service March 12, 2023 Coding Level of Care Code 15454 INT INP/OBS CARE
[2023-03-13] MEDS: DOXYCYCLINE HYCLATE 100 MG in DEXTROSE 5% 100 ML IV SCH ×2 (02:23→13:27)
[2023-03-13] MEDS ORDERED: PROCHLORPERAZINE MALEATE 5 MG TAB PO ONE (02:27)
[2023-03-13] MEDS ORDERED: SODIUM CHLORIDE 0.9% 1000ML 1,000 ML IV ONE (03:46)
[2023-03-13] MEDS ORDERED: BACLOFEN 10 MG TAB PO STA (05:54)
[2023-03-13] MEDS ORDERED: cefTRIAXone SODIUM 2,000 MG in DEXTROSE 5% 50 ML IV SCH (06:00)
[2023-03-13 06:04] LABS: Hematocrit (blood only) 36.4 % (42.0-52.0); Hemoglobin 12.5 g/dl (14.0-18.0); Mean Corpuscular Hemoglobin 31.7 pg (25.0-34.0); Mean Corpuscular Hgb Conc 34.3 g/dL (32.0-36.0); Mean Corpuscular Volume 92.4 fL (80.0-100.0); Mean Platelet Volume 11.7 fL (9.4-12.4); Platelet Count 113 K/uL (130-400); RDW Coefficient of Variation 13.9 % (11.5-14.5); RDW Standard Deviation 47.7 fL (36.4-46.3); Red Blood Count 3.94 M/uL (4.70-6.10); White Blood Count 7.04 K/ul (4.8-10.8)
[2023-03-13 06:23] LABS: Albumin Globulin Ratio 1.1 (0.9-2); Albumin Level 3.1 gm/dl (3.4-5.0); BUN Creatinine Ratio 24.3 (10-20); Bilirubin,Total 0.5 mg/dl (0.2-1.0); Calcium 8.3 mg/dl (8.6-10.3); Creatinine Clr Calc Pharmacy 66.5 ml/min; Globulin 2.9 gm/dl (2.5-4.0); Potassium 3.7 mmol/L (3.5-5.1)
[2023-03-13 06:39] LABS: Basophils # (auto) 0.05 K/uL (0-0.2); Basophils % (auto) 0.7 %; Eosinophils # (auto) 0.03 K/uL (0-0.50); Eosinophils % (auto) 0.4 %; Immature Granulocytes # (auto) 0.03 K/uL (0.01-0.20); Immature Granulocytes % (auto) 0.4 %; Lymphocytes # (auto) 3.39 K/uL (1.2-3.4); Lymphocytes % (auto) 48.2 %; Monocytes # (auto) 0.54 K/uL (0.11-0.59); Monocytes % (auto) 7.7 %; Neutrophils % (auto) 42.6 %
--- NOTE | 2023-03-13 07:46 | Hospitalist Progress Note ---
Date of Service March 13, 2023 Assessment & Plan (1) Anaplasmosis: Plan: 72 y/o male with PMHx ADHD, HIV/?AIDS, and insomnia here for lethargy AMS found to have anaplasmosis with concern for sepsis. Anaplasmosis Patient presented with septic like picture - tachycardia, tachypnea, leukopenia, fever, hypoxia, alerted mental status. Empirically started on cefepime. Blood smear showing anaplasmosis. Explains current symptoms - tachycardia, tachypnea fatigue, elevated LFTs, headache etc. Patient started on doxy and ceftriaxone as there was concern for CSF involvement. Patient was also fluid resuscitated and started on supplemental oxygen. Ceftriaxone does not cover Anaplasmosis so this was discontinued. Imaging: CT head: No acute intracranial process CTA chest: No evidence of acute pulmonary embolism. Stable 6 mm pulmonary micronodule right lower lobe. Patient is undergoing annual lung screening. Centrilobular emphysema. Work up: Anaplasmosis positive. Lyme disease equivocal. Babesia negative - PCR sent. LP with 8 WBCs otherwise WNL -Trend CBC -Zofran PRN -Supportive Care -Doxycycline Tachypnea, tachycardia, hypoxia Patient tachycardic, tachypneic, new oxygen requirement. CTA chest negative for VTE. CXR did not show signs of congestion or pulmonary congestion. Likely in the setting of anaplasmosis. Should improve with time. Abdominal pain Likely in the setting of tick borne illness. Abdominal exam benign. KUB without signs of obstruction. Should improve with time. ADHD Continue methylphenidate HIV/?AIDS Unclear if patient has had an AIDs defining illness. CD4 count >500 on last check. Stable on HARRT with Biktarvy. Will recheck CD4 count. GERD Continue famotidine Insomnia Continue mirtazapine FENa: regular Code Status: Full DVT PPX: SCDs PT/OT: ordered Dispo: med/tele (2) Acquired immune deficiency syndrome: (3) GERD without esophagitis: (4) ADHD, predominantly inattentive type: Admission and Anticipated Discharge Date Admission Date: March 12, 2023 Supervising Physician Co-Signing Physician Notes I personally examined the patient and verified all tejeda points of history and exam, discussed case, and agree with decision making with Dr Rodrigues. feeling better but still not good enough to get home, hiccups have gotten better. Vitals noted, in general he is awake and alert pleasant no distress. HEENT normocephalic atraumatic mucous membranes moist. Breathing unlabored no accessory muscle use good effort bibasilar rales. Skin shows no rashes no pallor or icterus. Very fatigued Anaplasmosisanticipate improvement on doxycyclinecontinue, improving. Hypoxia was probably atelectasis and fatigue. Hiccups have resolved otherwise as above, stable for transfer to medical, hopefully home tomorrow Subjective Reports continued fatigue. Otherwise improved. Review of Systems Review of Systems: See HPI Physical Exam Physical Exam: Gen: resting and breathing comfortably on room air HEENT: AT NC MMM EOMI Resp: no increased work of breathing on room air CV: clinically well perfused Abd: non-distended MSK: no gross deformities Extremities: no edema, no swelling, no calf tenderness Psych: appropriate mood and affect Neuro: alert and oriented Results & Data Results & Data Vital Signs (Past 12 Hours) Vital Signs Temp Pulse Pulse Resp BP Pulse Ox Pulse Ox 03/13/23 06:00 95 03/12/23 22:00 82 03/13/23 02:52 36.7 C 72 18 100/61 96 03/12/23 23:00 94 03/12/23 23:09 36.7 C 83 18 136/65 93 O2 Del Method O2 Del Method O2 Flow Rate 03/13/23 06:00 Room Air 03/12/23 22:00 03/13/23 02:52 Nasal Cannula 03/12/23 23:00 Nasal Cannula 2 03/12/23 23:09 Nasal Cannula Laboratory Results 03/13/23 05:18 03/13/23 05:18 Resident Activity Tracking Resident Involvement: Resident Care Provided Care Provided: Adult Hospital Medicine
[2023-03-13] MEDS: PANTOprazole 40 MG TAB PO SCH (08:47)
[2023-03-13] MEDS: ACETAMINOPHEN 325 MG TAB PO PRN ×2 (08:51→20:29)
[2023-03-13] MEDS: METHYLPHENIDATE HCL 5 MG TABLET PO SCH ×2 (10:09→20:27)
--- NOTE | 2023-03-13 17:17 | Billing Data ---
Date of Service March 13, 2023 Coding Level of Care Code 90727 SUB INP/OBS CARE MIN
[2023-03-13] MEDS: BIKTARVY PO SCH (20:25)
[2023-03-13] MEDS: FAMOTIDINE 20 MG TAB PO SCH (20:26)
[2023-03-13] MEDS: MIRTAZAPINE TAB 15 MG TAB PO SCH (20:26)
[2023-03-13] MEDS ORDERED: PROCHLORPERAZINE MALEATE 5 MG TAB PO PRN (20:58)
[2023-03-14] MEDS: DOXYCYCLINE HYCLATE 100 MG in DEXTROSE 5% 100 ML IV SCH (03:09)
[2023-03-14] MEDS: ACETAMINOPHEN 325 MG TAB PO PRN (08:11)
[2023-03-14] MEDS: PANTOprazole 40 MG TAB PO SCH (08:11)
[2023-03-14] MEDS: METHYLPHENIDATE HCL 5 MG TABLET PO SCH (08:14)
--- NOTE | 2023-03-14 11:19 | Discharge Summary ---
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 Patient states for the past week he has experienced lethargy loss of appetite periods of confusion and fever which has progressively worsened with time, began having a headache today with persistent nausea. Patient was seen in ED 03/08 CXR unremarkable at that time mild leukopenia normal platelet count, symptoms believed to be viral in nature at that time. Patient states his symptoms have worsened since. Blood work today revealed decreased platelet count, anaplasma smear positive lyme testing equivocal, given his headache a lum bar puncture was obtained in the ED which indicated anaplasmosis in the CSF. Findings discussed with patient. Admission Exam Per Admitting Provider Constitutional: + ill appearing and cooperative Eyes: PERRL, conjunctivae normal, anicteric sclerae ENMT: external ear and nose normal, oropharynx normal Neck: trachea midline, no thyromegaly Respiratory: Auscultation: lungs clear to auscultation bilaterally Cardiovascular: Rate/Rhythm: regular rhythm and + tachycardic Skin: no rashes, warm and dry Principal Diagnosis Anaplasmosis Discharge Exam Constitutional WD/WN, vitals as above Eyes Anicteric sclerae ENMT External ears and nose normal. Moist mucous membranes Respiratory normal respiratory effort, lungs clear to auscultation Cardiovascular Rate/Rhythm: regular rate and regular rhythm No lower extremity edema bilaterally Gastrointestinal (Abdomen) Abdomen nondistended. Skin no rashes, warm and dry Psychiatric A+Ox3, euthymic affect Discharge Data Allergies Allergy/AdvReac Type Severity Reaction Status Date / Time Penicillins Allergy Unknown A Verified 11/29/22 08:38 CHILD, INTERNAL BLEEDING Consultations 03/12/23 02:12 ED Decision to Admit Stat Ordered Studies 03/11/23 22:42 CT angio chest PE protocol Stat 03/12/23 02:10 CT head/brain wo con Stat Chest CTA 03/11/23 22:42 Exam(s): CTA CHEST IV Amt: 119ML OF OPTIRAY 320 EXAM: CT Angiography Chest With Intravenous Contrast CLINICAL HISTORY: Reason for exam: PE. TECHNIQUE: Axial computed tomographic angiography images of the chest with intravenous contrast. CTDI is 33.24 mGy and DLP is 717.99 mGy-cm. Automated exposure control was utilized for the study. A dose lowering technique was utilized adhering to the principles of ALARA. MIP reconstructed images were created and reviewed. COMPARISON: CT chest 01/04/23 FINDINGS: Pulmonary arteries: Adequate pulmonary artery opacification. Normal caliber main pulmonary artery. No pulmonary embolism. Aorta: No acute findings. No thoracic aortic aneurysm or dissection. Lungs: Stable 6 mm pulmonary micronodule right lower lobe (series 6, image 67). Centrilobular emphysema. No consolidation or mass. Pleural space: Unremarkable. No pleural effusion or pneumothorax. Heart: Unremarkable. Normal heart size. Mild atherosclerosis of the left anterior descending coronary artery. No RV strain. No pericardial effusion. Bones/joints: No acute fracture or dislocation. Soft tissues: Unremarkable. Lymph nodes: Unremarkable. No adenopathy. Gallbladder and bile ducts: Cholecystectomy. IMPRESSION: 1. No evidence of acute pulmonary embolism. 2. Stable 6 mm pulmonary micronodule right lower lobe. Patient is undergoing annual lung screening. 3. Centrilobular emphysema. Electronically signed by: Norm Juárez M.D. 03/12/23 00:12 AM Chest X-Ray 03/11/23 22:43 XR chest 1V portable CLINICAL HISTORY: Sepsis TECHNIQUE: Single frontal radiograph of the chest was obtained. Comparison: Comparison is made to chest radiograph 03/08/2023 FINDINGS: No lines and tubes are seen. The cardiomediastinal silhouette is normal. The lungs are clear. No evidence of pleural effusion or pneumothorax. IMPRESSION: No acute abnormalities and in particular no radiographic evidence of pneumonia. ACT 112: Negative or not required by law. Electronically signed by: Kilo Chung M.D. 03/12/2023 7:[address] 03/12/23 02:10 Exam(s): CT HEAD Without Contrast EXAM: CT Head Without Intravenous Contrast CLINICAL HISTORY: Reason for exam: altered ms. TECHNIQUE: Axial computed tomography images of the head/brain without intravenous contrast. CTDI is 37.01 mGy and DLP is 625.8 mGy-cm. Automated exposure control was utilized for the study. A dose lowering technique was utilized adhering to the principles of ALARA. COMPARISON: 04/23/14 FINDINGS: Brain: Cortical cerebral volume loss. Melendez-white matter differentiation maintained. No acute intracranial hemorrhage, mass- effect, or edema. Ventricles: Unremarkable. No hydrocephalus. Bones/joints: Unremarkable. No acute fracture. Soft tissues: Unremarkable. Sinuses: Unremarkable as visualized. No acute sinusitis. Mastoid air cells: Unremarkable as visualized. No mastoid effusion. IMPRESSION: No acute intracranial process. Electronically signed by: Norm Juárez M.D. 03/12/23 02:52 AM KUB X-Ray 03/12/23 09:06 XR KUB/Abdomen 1 view CLINICAL HISTORY: r/o obstruction TECHNIQUE: 1 view of the abdomen was obtained. Comparison: None available at the time of this dictation. FINDINGS: Cholecystomy clips are seen in the right upper quadrant. Postsurgical changes of hernia repair are noted in the right lower pelvis. The osseous structures are grossly unremarkable. The bowel gas pattern is nonobstructive. Small stool burden is seen. IMPRESSION: Nonobstructive bowel gas pattern. ACT 112: Negative or not required by law. Electronically signed by: Kilo Chung M.D. 03/12/2023 10:12 AM Chest X-Ray 03/12/23 10:54 XR chest 2V PA/lateral CLINICAL HISTORY: tachypneic, increased work of breathing TECHNIQUE: 2 views of the chest were obtained. Comparison: Comparison is made to chest radiograph 03/11/2023 FINDINGS: No lines and tubes are seen. The cardiomediastinal silhouette is normal. Trace atelectasis in the left lung base. No evidence of pleural effusion or pneumothorax. IMPRESSION: No acute chest disease. ACT 112: Negative or not required by law. Electronically signed by: Kilo Chung M.D. 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 Anaplasmosis Patient presented with sepsis - tachycardia, tachypnea, leukopenia, fever, h ypoxia, alerted mental status. Empirically started on cefepime. Lyme disease test equivocal, babesia negative (PCR sent). LP with 8 WBS otherwise WNL. Blood smear showing anaplasmosis which explains presenting symptoms - tachycardia, tachypnea, fatigue, elevated LFTs, headache etc. Patient started on doxycycline and ceftriaxone as there was concern for CSF involvement. Patient was also fluid resuscitated and started on supplemental oxygen. Ceftriaxone does not cover Anaplasmosis so this was discontinued. Imaging was completed including CT head (WNL) and CTA chest (no evidence of PE, stable 6mm pulmonary micronodule at right lower lobe). Patient's symptoms showed improved and he was discharged to complete the remainder of his 10 day course of doxycycline. Tachypnea, tachycardia, hypoxia Patient tachycardic, tachypneic, new oxygen requirement at time of admission. CTA chest negative for VTE. CXR did not show signs of congestion or pulmonary congestion. Likely in the setting of anaplasmosis. Symptoms improved during admission. On room air at time of discharge. Abdominal pain/Hiccups Likely in the setting of tick borne illness. Abdominal exam benign. KUB without signs of obstruction. Appetite still decreased but GI symptoms improved. Patient also had several episodes of hiccups during admission- these resolved with Prochlorperazine. Some left sided/central soreness afterwards (EKG normal), discomfort likely related to prolonged hiccuping. HIV/?AIDS Unclear if patient has had an AIDs defining illness. CD4 count >500 on last check. Stable on HARRT with Biktarvy. Recheck CD4 count pending. (2) Acquired immune deficiency syndrome: (3) GERD without esophagitis: (4) ADHD, predominantly inattentive type: Total Time Total Time Spent Total Time Spent (In Minutes): . Discharge Plan Discharge Items Patient Disposition: Home - Self-Care Reason For Visit: ANAPLASMOSIS Discharge Diagnosis: anaplasmosis Activity: Per Instructions section Non-emergency contact: Primary Care Provider Call non-emergency contact if: your temperature is above 101.5 Follow-up/Referrals: Tyra English MD [Primary Care Provider] - 03/17/23 2:00 pm (Please schedule hospital discharge follow up appointment within 1-[address] HUGHES) Diet: Regular Addtl Attending Provider Instructions: You were admitted to the hospital for Anaplasmosis. You were treated with doxycycline and supplemental oxygen. You improved clinically. We will continue with 10 days total of treatment with doxycycline. A discharge summary will be sent to your primary care physician to ensure continuity of care. Please bring this discharge summary with you to your next office appointment so that your provider can review it at that time. Follow-up appointment We have requested a follow-up appointment with your primary care physician within one week of discharge. Please call their office if you do not hear from them. Keep all your follow-up appointments as already scheduled. If you cannot make an appointment, notify your provider. Medications Your medication list has been reviewed and reconciled upon discharge to ensure accuracy and continuity of care. An updated list of all your medications is included with your hospital discharge paperwork. Please review this list closely, and make note of any changes. We sent a new medication called doxycycline to your pharmacy. Take doxycycline 100 mg twice daily for the next 8 and a half days. Take your medications as instructed; do not skip a dose of your medicines. Make sure all of your doctors know every medicine you are taking (including [id number] medicines, vitamins, and supplements). Call your primary care provider before taking any new medicines (including over- the- counter medicines, vitamins, and supplements), because some of these may interact with your current medications, or may make your symptoms worse. Tell your primary care provider if you cannot afford your medications. CONTACT YOUR PRIMARY CARE PROVIDER if you experience any of the following: shortness of breathing difficulty speaking in complete sentences Difficulty following your treatment plan, or difficulty taking medications CALL 911 OR GO TO THE EMERGENCY DEPARTMENT if you experience any of the following: Sudden, severe abdominal pain or nausea/vomiting Severe chest pain, or chest pain that radiates (moves) to your jaw or arm Sudden, severe shortness of breath or difficulty breathing Thank you for allowing us to participate in your care Pending Studies at Discharge: Yes Stand-Alone Forms: [employer], Smoking Cessation Medications and DC Order Prescriptions: New doxycycline hyclate 100 mg capsule 100 mg PO BID Qty: 17 0RF Continued mirtazapine 30 mg tablet 30 mg PO HS Qty: 90 1RF methylphenidate HCl 5 mg tablet 5 mg PO BID Qty: 60 0RF zolpidem 10 mg tablet 10 mg PO HS PRN (Reason: insomnia) Qty: 30 0RF Biktarvy 50-200-25 mg tablet 1 tab PO HS famotidine 20 mg tablet 20 mg PO HS Rx Instructions: TAKE 1 TABLET BY MOUTH AT BEDTIME Discharge Orders: Discharge Order (Routine); Ordered 03/14/23 Ordered By: Lyssa Kamara Admission Data Admit Date/Time: 03/12/23 03:01 Attending Provider: Yana Bowman Admit Provider: Emma White Primary Care Provider: Tyra English Other Providers: Jese Leger ; Francis Lara Other Interventions: Discharge Summary Assessment (RN) Last Done: 03/14/23 13:20 Supervising Physician Co-Signing Physician Notes Resident Physician Supervision Note: I independently interviewed and examined the patient and verified the tejeda history and physical, reviewed labs and image studies and agree with resident findings and care plan.
[2023-03-14 14:27] LABS: Anaplasmosis Smear(Rpt to DOH) Pos for Anaplasma
[2023-03-14 19:27] LABS: LSP % Cells Analyzed CD4 39 % (30-61); LSP Absolute Ct CD4 442 cells/uL (490-1740); LSP Lymphocytes Absolute 1143 cells/uL (850-3900)
--- NOTE | 2023-03-15 08:42 | Electrocardiogram Report ---
Test Reason : Blood Pressure : / mmHG Vent. Rate : 080 BPM Atrial Rate : 080 BPM P-R Int : 184 ms QRS Dur : 092 ms QT Int : 386 ms P-R-T Axes : 074 065 062 degrees QTc Int : 445 ms Normal sinus rhythm Normal ECG When compared with ECG of 11-MAR-2023 22:57, Vent. rate has decreased BY 51 BPM Confirmed by Teofilo Nj ([id number]) on 03/15/2023 8:42:37 AM Referred By: REFERRED SELF Confirmed By:Teofilo Nj
[2023-03-15 13:52] LABS: 18KDIGG Band NON-REACTIVE; 23KDIGG Band NON-REACTIVE; 23KDIGM Band REACTIVE; 28KDIGG Band NON-REACTIVE; 30KDIGG Band NON-REACTIVE; 39KDIGG Band NON-REACTIVE; 39KDIGM Band NON-REACTIVE; 41KDIGG Band NON-REACTIVE; 41KDIGM Band NON-REACTIVE; 45KDIGG Band NON-REACTIVE; 58KDIGG Band NON-REACTIVE; 66KDIGG Band NON-REACTIVE; 93KDIGG Band NON-REACTIVE; Lyme Antibodies, WB IgG NEGATIVE (NEGATIVE); Lyme Antibodies, WB IgM NEGATIVE (NEGATIVE)
[2023-03-16 01:52] LABS: Babesia microti DNA Not Detected (Not Detected)
== END 2023-03-14 14:11 | disposition home or self-care (01) | DRG 975 ==
LOC: ED 22:25 → SUATTDRO 03-12 03:01 → 2N 03-12 03:01 → 2E 03-12 11:02 → 3N 03-13 16:45